=== PATIENT | female | born 1950 | race Caucasian/White ===

== ENCOUNTER → 2022-02-08 16:54 | Outpatient (CLI) | payer OTHER, SELFPAY ==
[2022-02-08 18:20] LABS: TSH w/ Reflex to FT4 0.12 uIU/mL (0.47-4.68)
[2022-02-08 18:54] LABS: Free T4, Direct Thyroxine 1.61 ng/dL (0.78-2.19)
== END ==
PROVIDERS: PCP Student in an Organized Health Care Education/Training Program; Referring Provider Student in an Organized Health Care Education/Training Program; Visit Provider Student in an Organized Health Care Education/Training Program
DX: E03.9 Hypothyroidism, unspecified (principal)
CPT/HCPCS: 36415; 84439; 84443

== ENCOUNTER → 2022-03-10 08:36 | Outpatient (CLI) | payer OTHER, SELFPAY ==
--- NOTE | 2022-03-10 | DI.CT.S_ITS ---
PROCEDURE: CT ORBIT BI W CON INDICATIONS: Constant exophthalmos, right eye TECHNIQUE: After the administration of intravenous contrast, 2.5 mm axial images acquired through the orbits, with coronal and sagittal reformats. For radiation dose reduction, the following was used: automated exposure control, adjustment of mA and/or kV according to patient size. COMPARISON: None. FINDINGS: Image quality: Excellent. Orbits: Globes are symmetrical. Right exophthalmos is noted compatible with reported history. The optic nerves are normal in size and enhancement. No retrobulbar masses or fat abnormalities. The extra-ocular muscles are normal and symmetrical in appearance. Lacrimal glands are normal. Optic chiasm is normal. Periorbital soft tissues are normal. Intracranial: The pituitary gland is normal, without sellar or suprasellar masses. Visualized cerebral hemispheres, brainstem, and spinal cord appear normal. Bones and sinuses: Visualized calvarium and facial bones appear intact. There is complete opacification the left maxillary sinus. Left maxillary sinus is decreased in size relative to the right. The mastoids are clear. IMPRESSION: 1. Right exophthalmos. No right retro bulbar masses, fluid collections or fat abnormalities. 2. Severe chronic left maxillary sinusitis. Decreased left maxillary sinus size compared to the right which could be related to silent sinus syndrome. Please correlate with clinical findings. Dictated by: Yola Abraham MD, PhD on 03/10/2022 at 13:35 Approved by: Yola Abraham MD, PhD on 03/10/2022 at 14:01
[2022-03-10 09:28] LABS: BUN Creatinine Ratio 15.1 (6-22); Blood Urea Nitrogen 14 mg/dL (7-17); Calcium 9.1 mg/dL (8.4-10.2); Carbon Dioxide 26 mmol/L (22-32); Chloride 106 mmol/L (98-107); Estimated Glomerular Filt Rate > 60 mL/min (>60); Glucose 135 mg/dL (80-110); HEMOLYSIS < 15 (0-50); Potassium 3.7 mmol/L (3.4-5.1); Sodium 142 mmol/L (137-145)
[2022-03-10 11:05] LABS: Hemoglobin A1C% w Est Avg Glu 6.1 % (4.0-6.0)
== END ==
PROVIDERS: Internal Medicine; Referring Provider Ophthalmology; Visit Provider Ophthalmology
DX: H05.241 Constant exophthalmos, right eye (principal); E11.9 Type 2 diabetes mellitus without complications; J32.0 Chronic maxillary sinusitis
CPT/HCPCS: 36415; 70481; 80048; 83036; Q9967

== ENCOUNTER 2024-03-03 12:22 | Emergency (ER) | payer OTHER, SELFPAY ==
[2024-03-03] VITALS (19 sets, daily range): BP systolic 179–230; BP diastolic 84–152; PULSE 80–108; RESP 12–16; TEMP 36.7; O2SAT 98–100; BMI 33.9
--- NOTE | 2024-03-03 12:34 | DI.RAD.S_ITS ---
PROCEDURE: XR ANKLE LT MIN 3V INDICATIONS: fall/ pain TECHNIQUE: 3 views of the ankle were acquired. COMPARISON: None. FINDINGS: Bones: There is a mildly displaced distal fibular fracture. Avulsion fractures present of the medial malleolus. Posterior malleolar fracture. There is anterior dislocation of the tibia in relation to the talus. In addition, overall there is medial dislocation of the distal tibia in relation to the talus. Soft tissues: No tibiotalar joint effusion. Achilles tendon appears normal. IMPRESSION: Anterior medial dislocation of the tibia in relation to the tibiotalar joint space. Comminuted distal fibular fracture with angulation. Posterior malleolar fracture is present. Avulsion fracture of the medial malleolus. Dictated by: Jossie Castro M.D. on 03/03/2024 at 13:41 Approved by: Jossie Castro M.D. on 03/03/2024 at 13:42
--- NOTE | 2024-03-03 13:45 | DI.RAD.S_ITS ---
PROCEDURE: XR TIBIA FIBULA LT 2V INDICATIONS: ankle fx TECHNIQUE: 2 views of the tibia and fibula were acquired. COMPARISON: of 03/03/2024[facility], CT, CT LE LT W CON, , 15:52[facility], CR, XR ANKLE LT MIN 3V, 03/03/2024, 12:44. FINDINGS: Bones: Comminuted angulated distal fibular fracture as well as posterior malleolar fracture. There is dislocation of the tibiotalar joint space. Please see CT/ankle x-ray report of 03/03/2024 for further details. Soft tissues: No suspicious soft tissue calcifications or masses. IMPRESSION: Comminuted distal fibular fracture. Mildly displaced posterior malleolar fracture. Dislocation at the tibiotalar joint space. Dictated by: Jossie Castro M.D. on 03/03/2024 at 16:02 Approved by: Jossie Castro M.D. on 03/03/2024 at 16:03
--- NOTE | 2024-03-03 13:52 | ED.LOWEXIN ---
HPI - Extremity Injury (Lower) General Chief Complaint: Extremity Injury, Lower Stated Complaint: Trip and fall L ankle pain. 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 She did straighten it back up herself and eventually called 911 for assistance in getting to the emergency department. States pain is adequately controlled and denying additional pain medication at this time. No other injuries appreciated Related Data Previous Rx's Medication Instructions Recorded hydrocodone 5 mg-acetaminophen 325 0.5 - 1 tab PO Q6H PRN pain #10 03/03/24 mg tablet tabs Allergies Allergy/AdvReac Type Severity Reaction Status Date / Time prochlorperazine Allergy Verified 03/03/24 12:31 [From Compazine] Review of Systems Review of Systems Narrative: Pertinent positive and negative findings as per HPI Patient History Medical History (Updated 03/03/24 @ 16:50 by Judy Crane MD) Hypertension Social History Smoking Status: Never smoker Smoking Status: Never smoker alcohol intake frequency: other Substance Use Type: does not use Exam Initial Vital Signs Initial Vital Signs: Vital Signs Pulse Rate 89 03/03/24 12:27 Blood Pressure 198/91 H 03/03/24 12:27 Pulse Oximetry 99 03/03/24 12:27 General: Healthy appearing, in mild distress. Able to give a complete and coherent history. Well-nourished well-developed HEENT: Moist mucous membranes, normal sclera with reactive pupils, Respiratory: Lungs with Full and symmetrical air movement Cardiac: Regular rate and rhythm no murmurs no bruits Skin: Warm and dry, no rashes Neurologic: Grossly neurologically intact with no obvious asymmetries or abnormalities Extremities: Tenderness and mild swelling to the left ankle. She is neurovascularly intact. She does not have significant tenderness to the knee Psych: Cooperative, appropriate insight and affect Procedures Orthopedic Splinting/Casting Left ankle fracture, dislocation: Time of procedure: 15:39 Side: left Lower Extremity Injury Location: ankle Lower Extremity Immobilizer: posterior splint and stirrup splint Other Orthopedic Equipment: walker Post splinting neuro exam: intact Post splinting vascular exam: intact Placed by: Provider Additional Comments: Patient declined procedural sedation for the reduction and splinting of her trimalleolar fracture. She was given Toradol and dissociated dose of ketamine and tolerated the procedure quite well. Splint was placed, she will go to CT and will need orthopedic follow up as an outpatient Course Orders Ordered: Discontinued Medications Ketamine HCl (Ketamine 50 Mg/5 Ml *Syringe*) 9.5254 mg 0.1 mg/kg (9.5254 mg) IV NOW ONE Stop: 03/03/24 14:26 Last Admin: 03/03/24 15:26 Dose: 9.5254 mg Documented By: RAOUL Ketorolac Tromethamine (Ketorolac 30 Mg/Ml Vial) 15 mg IV NOW ONE Stop: 03/03/24 13:46 Last Admin: 03/03/24 14:13 Dose: 15 mg Documented By: RAOUL Lisinopril (Lisinopril 10 Mg Tablet) 10 mg PO NOW ONE Stop: 03/03/24 13:51 Last Admin: 03/03/24 14:13 Dose: 10 mg Documented By: RAOUL Vital Signs Vital signs: Vital Signs - 8 hr 03/03/24 12:27 03/03/24 12:27 03/03/24 12:30 Temperature Pulse Rate 89 86 Respiratory Rate Blood Pressure 198/91 H Pulse Oximetry 99 99 Oxygen Delivery Method 03/03/24 12:30 03/03/24 12:31 03/03/24 13:00 Temperature 98.0 F Pulse Rate 89 86 Respiratory Rate 16 Blood Pressure 200/86 H 198/91 H Pulse Oximetry 99 98 Oxygen Delivery Method Room Air 03/03/24 13:01 03/03/24 13:01 03/03/24 13:30 Temperature Pulse Rate 85 86 Respiratory Rate Blood Pressure 187/84 H Pulse Oximetry 99 99 Oxygen Delivery Method 03/03/24 13:31 03/03/24 13:31 03/03/24 13:45 Temperature Pulse Rate 80 Respiratory Rate Blood Pressure 197/147 H 179/131 H Pulse Oximetry 100 Oxygen Delivery Method 03/03/24 13:45 03/03/24 14:00 03/03/24 14:01 Temperature Pulse Rate 84 82 85 Respiratory Rate Blood Pressure Pulse Oximetry 100 99 98 Oxygen Delivery Method 03/03/24 14:01 03/03/24 14:13 03/03/24 14:30 Temperature Pulse Rate 89 Respiratory Rate Blood Pressure 186/84 H 186/84 H Pulse Oximetry 99 Oxygen Delivery Method 03/03/24 15:00 03/03/24 15:30 Temperature Pulse Rate 83 108 H Respiratory Rate 12 Blood Pressure Pulse Oximetry 100 99 Oxygen Delivery Method Room Air MDM - Extremity Injury (Lower) Imaging Data Left ankle x-ray: Radiologist's Impression: There is a mildly displaced distal fibular fracture. Avulsion fractures present of the medial malleolus. Posterior malleolar fracture. There is anterior dislocation of the tibia in relation to the talus. In addition, overall there is medial dislocation of the distal tibia in relation to the talus. MDM Narrative Medical decision making narrative: CC: Fall with acute left ankle injury Complicating co-morbidities: Hypertension Data collected from: patient Differential considered: Sprain, fracture, fracture dislocation, knee injury, hip injury Exam documented above, pertinent findings include: Mild swelling to the ankle on the left side. It is in a brace. She is neurovascularly intact. Some minor tenderness to the proximal fibula no other injury to the knee. No pelvic or hip abnormalities. Imaging studies independently reviewed: There is a mildly displaced distal fibular fracture. Avulsion fractures present of the medial malleolus. Posterior malleolar fracture. There is anterior dislocation of the tibia in relation to the talus. In addition, overall there is medial dislocation of the distal tibia in relation to the talus. Consultations: Dr. Chong, orthopedics. Recommendation was reduction posterior splint with sugar-tong, CT scan after reduced and outpatient follow up with her for surgical planning and definitive treatment of the fracture. Treatments: Patient has declined medications however her blood pressure continues to increase. We negotiated 10 additional mg of lisinopril and Toradol at this time Re-evaluations: Patient is tolerating the pain well Discussion: 73-year-old woman with a left trimalleolar fracture dislocation. She is exceptionally intolerant of all pain medications. She did fairly well with simply Toradol and dissociated doses of ketamine for her reduction and splinting. CT scan was obtained for surgical planning purposes. She is placed in a posterior splint with sugar-tong. We will be given a walker. Her partner is working on getting her a wheelchair. She notes she is under significant stressors recently with both financial issues and she and her are currently working on a divorce. Stressed the importance of follow up for definitive treatment, she does understand this is an unstable fracture and she can not put any weight on her foot. She declined any additional pain medication for home use. She is safe for discharge Discharge Plan Departure Patient Disposition: Home Clinical Impression: Closed fracture dislocation of ankle Qualifiers: Encounter type: initial encounter Laterality: left Qualified Code(s): S82.892A - Other fracture of left lower leg, initial encounter for closed fracture Closed fibular fracture Qualifiers: Encounter type: initial encounter Fibula location: shaft Fracture morphology: comminuted Fracture alignment: displaced Laterality: left Qualified Code(s): S82.452A - Displaced comminuted fracture of shaft of left fibula, initial encounter for closed fracture Instructions: DI for Ankle Fracture Activity Restrictions/Additional Instructions: Thank you for coming in today I am sorry such as small slipped on the grass caused such a notable fracture. You broke your fibula and have a trimalleolar fracture with dislocation. I was able to mostly reduce the wound and you were placed in a posterior splint with a sugar-tong supplement. This is an unstable fracture, you can not walk on it. I spoke with Dr. Richa Chong, our orthopedic surgeon. Please call [facility] at [phone] and let them know that you are in the emergency department, you have a trimalleolar ankle fracture and need to schedule an appointment with Dr. Chong for consultation and definitive treatment of your fracture. Please use your usual pain medications if needed. Prescription for hydrocodone was electronically transmitted to [facility] in [place] Keeping the foot elevated can be helpful. An ice pack on the outside to try and reduce some of the swelling can also be helpful. Prescriptions: New hydrocodone-acetaminophen 5-325 mg tablet 0.5 - 1 tab PO Q6H PRN (Reason: pain) Qty: 10 0RF Referrals: Miscellaneous,Doctor, MD [Primary Care Provider] - Stand Alone Forms: Patient Portal/API
[2024-03-03] MEDS: KETOROLAC 30 MG/ML VIAL 15 MG IV (14:13)
[2024-03-03] MEDS: lisinopriL 10 MG TABLET PO (14:13)
[2024-03-03] MEDS: KETAMINE 50 MG/5 ML *SYRINGE 9.5254 MG IV (15:26)
--- NOTE | 2024-03-03 15:37 | DI.CT.S_ITS ---
PROCEDURE: CT LE LT W CON INDICATIONS: Left ankle fx, post reduction, pre-op TECHNIQUE: After the administration of intravenous contrast, 3 mm axial sections acquired of the left ankle , with coronal and sagittal reformats. COMPARISON: [facility], CR, XR TIBIA FIBULA LT 2V, 03/03/2024, 14:01. [facility], CR, XR ANKLE LT MIN 3V, 03/03/2024, 12:44. FINDINGS: Image quality: Excellent. Bones: There is a comminuted mildly displaced posterior malleolar fracture extending to the tibiotalar joint space. Comminuted distal fibular fracture is present. There is widening of the syndesmosis. Avulsion fracture is present at the distal aspect of the medial malleolus. There has been interval reduction compared to prior exam with improved near anatomic alignment at the tibiotalar joint space. Soft tissues: Ankle edema is present. IMPRESSION: Comminuted distal fibular fracture with widening of the syndesmosis. Mildly displaced posterior malleolar fracture extending into the joint space. Medial malleolar avulsion fracture. Near anatomic appearance of previous dislocation at the tibiotalar joint space. Dictated by: Jossie Castro M.D. on 03/03/2024 at 16:30 Approved by: Jossie Castro M.D. on 03/03/2024 at 16:33
--- NOTE | 2024-03-03 15:39 | PC.NURSE ---
Addendum entered by Aditi Rangel R.N. 03/03/24 15:44: gave a non sedative dose of ketamine for left lower extremity reduction, RT at bedside. pt tolerated the procedure and medication well and maintained her airway Original Note: gave a non sedative dose of ketamine for left lower extremity redy
== END 2024-03-03 17:54 | disposition home or self-care (01) ==
PROVIDERS: Emergency Provider Emergency Medicine
DX: S82.452A Displaced comminuted fracture of shaft of left fibula, initial encounter for closed fracture (principal); S82.892A Other fracture of left lower leg, initial encounter for closed fracture; W01.0XXA Fall on same level from slipping, tripping and stumbling without subsequent striking against object, initial encounter
CPT/HCPCS: 73590; 73610; 73701; 96374; 99284; J1885

== ENCOUNTER 2025-08-01 12:43 | Emergency (ER) | payer MEDICARE, SELFPAY ==
[2025-08-01] VITALS (21 sets, daily range): BP systolic 161–254; BP diastolic 75–120; PULSE 77–91; RESP 12–22; TEMP 36.2; O2SAT 95–98; BMI 35.5
--- NOTE | 2025-08-01 12:55 | EKG_ITS ---
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
--- NOTE | 2025-08-01 12:55 | ED.ABDPAIN ---
HPI - Abdominal Pain General Chief Complaint: Abdominal Pain Stated Complaint: Substurnal pain into back/Cramping/Hyperemesis Time Seen by Provider: 08/01/25 12:55 Source: patient Mode of arrival: Ambulatory History of Present Illness HPI narrative: 74-year-old female presents with epigastric pain with nausea but no vomiting, diarrhea, constipation, rectal bleeding, or urinary complaints after eating can beans from [employer], [place] earlier this morning. Patient is going through a divorce right now is under a lot of stress at this time. Patient denies any chest pain, back pain, cough, sore throat, fever, chills, body aches. Other than what is stated 14 pt ROS is negative. Related Data Previous Rx's ?Medication ?Instructions ?Recorded hydrocodone 5 mg-acetaminophen 325 0.5 - 1 tab PO Q6H PRN pain #10 03/03/24 mg tablet tabs Allergies Allergy/AdvReac Type Severity Reaction Status Date / Time Quinolones Allergy SVT Verified 08/01/25 12:53 prochlorperazine (From AdvReac feel ugh Verified 08/01/25 12:53 Compazine) Sulfa (Sulfonamide AdvReac Rash Verified 08/01/25 12:53 Antibiotics) Review of Systems Review of Systems ROS Unobtainable: All systems reviewed & are unremarkable except as noted in HPI and below Patient History Medical History (Updated 08/01/25 @ 18:35 by Avery Pitt DO) Hypertension Social History Smoking Status: Never smoker Smoking Status: Never smoker alcohol intake frequency: other Exam Narrative Exam Narrative: GENERAL: [74] year old patient appears stated age. Well-developed patient, in mild distress. HEAD: Atraumatic. Normocephalic. EYES: Pupils equal round and reactive. Extraocular motions intact. No scleral icterus. No injection or drainage. ENT: Nose without bleeding, purulent drainage. Throat without erythema, tonsillar hypertrophy or exudate. Airway patent. NECK: Trachea midline. Non tender CARDIOVASCULAR: Regular rate and rhythm without murmurs, gallops, or rubs. RESPIRATORY: Clear to auscultation. Breath sounds equal bilaterally. No wheezes, rales, or rhonchi. GASTROINTESTINAL: Abdomen soft, epigastric TTP nondistended. EXTREMITIES: No edema or joint tenderness. BACK: Nontender without deformity or crepitance. No flank tenderness. NEURO: AOx3. SKIN: No rash or erythema of visible areas Initial Vital Signs Initial Vital Signs: Vital Signs Temperature 97.2 F L 08/01/25 12:50 Pulse Rate 91 H 08/01/25 12:50 Respiratory Rate 18 08/01/25 12:50 Blood Pressure 243/113 H 08/01/25 12:50 Oxygen Delivery Method Room Air 08/01/25 12:50 Course Orders Ordered: ED Orders 08/01/25 12:55 CT abdomen pelvis w con Stat EKG-12 Lead Stat 08/01/25 13:10 Complete Blood Count AUTO DIFF Stat Comprehensive Metabolic Panel Stat Lipase Stat Trop I [Troponin I] Stat 08/01/25 14:48 Urine Culture Stat Urine Microscopic Stat 08/01/25 16:45 Troponin I Stat Lactated Ringer's (Lactated Ringers) 1,000 mls @ 1,000 mls/hr IV BOLUS ONE Stop: 08/01/25 18:57 Last Admin: 08/01/25 18:04 Dose: 1,000 mls/hr Documented By: ESTEFANY Ondansetron HCl (Ondansetron 4 Mg/2 Ml Inj) 4 mg IV NOW PRN PRN Reason: Nausea And Vomiting Last Admin: 08/01/25 14:04 Dose: 4 mg Documented By: LUIS Ondansetron HCl (Ondansetron 4 Mg Odt) 4 mg PO NOW PRN PRN Reason: Nausea And Vomiting Discontinued Medications Hydrocodone Bitart/Acetaminophen (Hydrocodone/Acet 5/325 Tablet) 1 tab PO NOW ONE Stop: 08/01/25 13:59 Last Admin: 08/01/25 14:04 Dose: 0.5 tab Documented By: LUIS Al Hydrox/Mg Hydrox/Simethicone 30 ml/ Lidocaine HCl 15 ml 0 ml PO NOW ONE Stop: 08/01/25 15:25 Last Admin: 08/01/25 15:43 Dose: 45 ml Documented By: ESTEFANY Hydralazine HCl (Hydralazine 20 Mg/Ml Vial) 5 mg IV NOW ONE Stop: 08/01/25 15:23 Last Admin: 08/01/25 15:42 Dose: 5 mg Documented By: ESTEFANY Hydralazine HCl (Hydralazine 20 Mg/Ml Vial) 10 mg IV NOW ONE Stop: 08/01/25 17:14 Last Admin: 08/01/25 17:49 Dose: Not Given Documented By: ESTEFANY Ketorolac Tromethamine (Ketorolac 30 Mg/Ml Vial) 15 mg IV NOW ONE Stop: 08/01/25 12:56 Last Admin: 08/01/25 13:31 Dose: 15 mg Documented By: ODELL Ketorolac Tromethamine (Ketorolac 30 Mg/Ml Vial) 15 mg IV NOW ONE Stop: 08/01/25 18:16 Last Admin: 08/01/25 18:19 Dose: 15 mg Lisinopril (Lisinopril 10 Mg Tablet) 10 mg PO NOW ONE Stop: 08/01/25 14:33 Last Admin: 08/01/25 14:37 Dose: 10 mg Documented By: LUIS Vital Signs Vital signs: Vital Signs - 8 hr 08/01/25 12:50 08/01/25 14:33 08/01/25 14:37 Temperature 97.2 F L Pulse Rate 91 H 80 80 Respiratory Rate 18 18 Blood Pressure 243/113 H 243/112 H 243/112 H Pulse Oximetry Oxygen Delivery Method Room Air 08/01/25 14:45 08/01/25 14:58 08/01/25 15:00 Temperature Pulse Rate 85 Respiratory Rate Blood Pressure 251/113 H 227/109 H Pulse Oximetry 96 Oxygen Delivery Method 08/01/25 15:00 08/01/25 15:17 08/01/25 15:17 Temperature Pulse Rate 84 85 Respiratory Rate 18 19 Blood Pressure 244/112 H Pulse Oximetry 97 95 Oxygen Delivery Method 08/01/25 15:30 08/01/25 15:39 08/01/25 15:39 Temperature Pulse Rate 89 85 Respiratory Rate 15 16 Blood Pressure 254/120 H Pulse Oximetry 97 97 Oxygen Delivery Method 08/01/25 15:42 08/01/25 15:52 08/01/25 15:52 Temperature Pulse Rate 88 88 Respiratory Rate 22 Blood Pressure 254/120 H 228/103 H Pulse Oximetry 98 Oxygen Delivery Method 08/01/25 16:00 08/01/25 16:00 08/01/25 16:20 Temperature Pulse Rate 80 79 Respiratory Rate Blood Pressure 230/108 H 230/108 H Pulse Oximetry 98 Oxygen Delivery Method 08/01/25 16:30 08/01/25 16:31 08/01/25 16:31 Temperature Pulse Rate 79 81 Respiratory Rate Blood Pressure 224/102 H Pulse Oximetry 98 97 Oxygen Delivery Method 08/01/25 17:00 08/01/25 17:01 08/01/25 17:01 Temperature Pulse Rate 83 83 Respiratory Rate 22 Blood Pressure 203/95 H Pulse Oximetry 97 97 Oxygen Delivery Method 08/01/25 17:30 08/01/25 17:31 08/01/25 17:31 Temperature Pulse Rate 82 84 Respiratory Rate Blood Pressure 161/75 H Pulse Oximetry 96 96 Oxygen Delivery Method 08/01/25 18:27 Temperature Pulse Rate 77 Respiratory Rate 12 Blood Pressure 193/89 H Pulse Oximetry 96 Oxygen Delivery Method Room Air MDM - Abdominal Pain Lab Data 08/01/25 13:10 08/01/25 13:10 Labs: Lab Results 08/01/25 08/01/25 08/01/25 Range/Units 13:10 14:48 16:45 WBC 13.1 H (4.5-11.0) X10^3/uL RBC 4.94 (4.0-5.2) X10^6/uL Hgb 14.6 (12.0-16.0) g/dL Hct 43.0 (36-46) % MCV 87.0 (80-100) fL MCH 29.6 (26-34) PG MCHC 34.0 (30-36) % RDW 15.3 H (11.6-14.8) % Plt Count 247 (150-400) X10^3/uL Neut % (Auto) 90.3 H (50-75) % Lymph % (Auto) 6.5 L (25-40) % [place] % (Auto) 2.8 L (3-14) % Eos % (Auto) 0.1 L (2-4) % Baso % (Auto) 0.3 (0-2) % Neut # (Auto) 60833 H (0752-0180) /uL Lymph # (Auto) 800 L (0466-2921) /uL [place] # (Auto) 400 (0-900) /uL Eos # (Auto) 0 (0-450) /uL Baso # (Auto) 0 (0-100) /uL Sodium 133 L (137-145) mmol/L Potassium 4.4 (3.4-5.1) mmol/L Chloride 99 (98-107) mmol/L Carbon Dioxide 24 (22-32) mmol/L BUN 15 (7-17) mg/dL Creatinine 0.82 (0.52-1.04) mg/dL Estimated GFR > 60 (>60) mL/min BUN/Creatinine Ratio 18.3 (6-22) Glucose 225 H (70-99) mg/dL Calcium 9.9 (8.4-10.2) mg/dL Total Bilirubin 0.8 (0.2-1.3) mg/dL AST 29 (14-36) IU/L ALT 22 (<35) IU/L Alkaline Phosphatase 69 (38-126) U/L Troponin I < 0.012 < 0.012 (0.01-0.034) ng/mL Total Protein 8.8 H (6.3-8.2) g/dL Albumin 4.9 (3.5-5.0) g/dL Globulin 3.9 (1.7-4.1) g/dL Albumin/Globulin Ratio 1.3 (1.0-2.8) Lipase 40 (23-300) U/L Urine RBC 0-1/hpf (0-5/HPF) Urine WBC 0-1/hpf (0-5/HPF) Ur Squamous Epith Cells 0-1 /hpf (0-5/HPF) Urine Bacteria Occasional (0-1) (None) Vol Urine Centrifuged 10ml (spun) Point of care testing: Urine Dip Bedside Urine Glucose 100 mg/dl Bedside Urine Bilirubin - Negative Bedside Urine Ketone - Negative Urine Specific [place] 1.010 Bedside Urine Occult Blood + Bedside Urine pH 8.0 Bedside Urine Protein ++ 100 Bedside Urine Urobilinogen - Negative Bedside Urine Nitrite - Negative Bedside Urine Leukocytes - Negative Esterase Imaging Data CT scan - abdomen/pelvis: Radiologist's Impression: [address] [address] [address] Scan Report Signed Patient: Mary Reed MR#: [id number] : 1950 Acct:[id number] Age/Sex: 74 / F Date of Service: 08/01/25 Loc: ED Accession Number: [id number] Procedure: CT abdomen pelvis w con Ordering Provider: Avery Pitt D.O. PROCEDURE: CT ABDOMEN PELVIS W CON INDICATIONS: abd pain TECHNIQUE: After the administration of intravenous contrast, axial sections acquired from the lung bases to the pubic symphysis. Coronal and sagittal reformats were performed. For radiation dose reduction, the following was used: automated exposure control, adjustment of mA and/or kV according to patient size. COMPARISON: None. FINDINGS: Image quality: Diagnostic. Lower Chest: No significant findings. ABDOMEN: Liver: No solid mass. Hepatic steatosis. Gallbladder: No radiopaque gallstones or wall thickening. Biliary ducts: No biliary dilation. Pancreas: No ductal dilation. Moderate fatty infiltration of the parenchyma. Spleen: Size is within normal limits. Adrenal Glands: No adrenal nodules. Kidneys and Ureters: No hydronephrosis. No solid mass. No complex renal cystic lesion which requires follow up. Stomach and Bowel: Normal colonic caliber, without significant wall thickening. Normal appendix. Descending and sigmoid colon diverticulosis without diverticulitis. Peritoneum: No abnormal intraperitoneal fluid. No free air. Ventral Wall: Tiny fat containing periumbilical hernia.. Abdominal Nodes: No retroperitoneal or mesenteric adenopathy by size criteria. Vessels: Aorta and inferior vena cava are normal in size. PELVIS: Pelvic Organs: Unremarkable. Bladder: No bladder wall thickening, accounting for underdistention. Pelvic Nodes: No enlarged lymph nodes. Miscellaneous: No inguinal hernias are seen. Bones: No aggressive osseous abnormality. Degenerative disc disease in the inferior lumbar spine. IMPRESSION: 1. No acute abnormality within the abdomen or pelvis. 2. Diverticulosis without diverticulitis. ECG Data Interpretation: NSR HR 79 CO 132 QRS [address]-t wave change No previous EKG to compare MDM Narrative Medical decision making narrative: All lab work, vital signs, nurse triage note, medication list, previous ER visits, and all imaging studies reviewed. CT abdomen and pelvis showed no acute abnormality within the abdomen or pelvis. Diverticulosis without diverticulitis. WBC 13.9 hemoglobin 14.6 platelets 247 sodium 133 has not 4.4 chloride 99 CO2 24 BUN 15 creatinine 0.82 glucose 225 troponin less than 0.012x2 LFTs normal lipase 40. Differential dx - stress, pancreatitis, diverticulitis, gerd, ulcer, constipation, kidney stone, kidney infection. Pt given fluids, hydralazine 5mg IV, gi cocktail. Discharge Plan Departure Patient Disposition: Home Clinical Impression: Abdominal pain, epigastric, Hypertensive urgency Instructions: DI for Abdominal Pain-Adult Activity Restrictions/Additional Instructions: Return with new or worsening symptoms. Keep hydrated. If BP elevated above 140/90 ok to take extra pill of lisiniopril daily until seen by PCP. Clear liquid diet advance as tolerated. Follow up PCP in 1-2 weeks if no improvement in symptoms. Prescriptions: No Action hydrocodone-acetaminophen 5-325 mg tablet 0.5 - 1 tab PO Q6H PRN (Reason: pain) Qty: 10 0RF Referrals: Quan Rodrigues MD [Primary Care Provider, Family Practice] Stand Alone Forms: Patient Portal/API
[2025-08-01 13:18] LABS: Add Manual Diff / Slide Review NO; Hematocrit 43.0 % (36-46); Hemoglobin 14.6 g/dL (12.0-16.0); Lymphocytes Absolute Auto 800 /uL (1100-4500); Mean Corpuscular HGB Conc 34.0 % (30-36); Mean Corpuscular Hemoglobin 29.6 PG (26-34); Mean Corpuscular Volume 87.0 fL (80-100); Platelet Count 247 X10^3/uL (150-400)
[2025-08-01 13:31] LABS: Alanine Aminotransferase 22 IU/L (<35); Albumin 4.9 g/dL (3.5-5.0); Albumin Globulin Ratio 1.3 (1.0-2.8); Alkaline Phosphatase 69 U/L (38-126); Blood Urea Nitrogen 15 mg/dL (7-17); Calcium 9.9 mg/dL (8.4-10.2); Carbon Dioxide 24 mmol/L (22-32); Chloride 99 mmol/L (98-107); Estimated Glomerular Filt Rate > 60 mL/min (>60); Globulin 3.9 g/dL (1.7-4.1); Glucose 225 mg/dL (70-99); HEMOLYSIS < 15 (0-50); Lipase 40 U/L (23-300); Potassium 4.4 mmol/L (3.4-5.1); Sodium 133 mmol/L (137-145); Total Protein 8.8 g/dL (6.3-8.2)
[2025-08-01] MEDS: KETOROLAC 30 MG/ML VIAL 15 MG IV ×2 (13:31→18:19)
[2025-08-01] MEDS: ONDANSETRON 4 MG/2 ML INJ IV (14:04)
--- NOTE | 2025-08-01 14:36 | PC.NURSE ---
pt states she does not want to try any IV medications to lower BP. States she wants to take her regular dosed 10mg lisinopril because she forgot her dose this AM. Provider aware
--- NOTE | 2025-08-01 14:40 | PC.NURSE ---
Pt ambulated on own to restroom.
[2025-08-01 14:49] LABS: Troponin I < 0.012 ng/mL (0.01-0.034)
[2025-08-01] MEDS: hydrALAZINE 20 MG/ML VIAL 5 MG IV (15:42)
[2025-08-01] MEDS: MAG HYDROX/ALUMINUM/SIMETH SUS 30 ML, LIDOCAINE VISCOUS 2% 15 ML PO (15:43)
[2025-08-01 17:42] LABS: Troponin I < 0.012 ng/mL (0.01-0.034)
[2025-08-01] MEDS: LACTATED RINGERS 1,000 ML 1000 ML IV (18:04)
== END 2025-08-01 18:57 | disposition home or self-care (01) ==
PROVIDERS: Emergency Provider Family Medicine; PCP Family Medicine
DX: R10.13 Epigastric pain (principal); I16.0 Hypertensive urgency; Z86.79 Personal history of other diseases of the circulatory system
CPT/HCPCS: 36415; 74177; 80053; 81003; 81015; 83690; 84484; 85025; 87086; 93005; 96374; 96375; 96376; 99284; J0360; J1885; J2405; J7120; Q9967

== ENCOUNTER 2025-08-03 10:35 | Inpatient (IN) | payer MEDICARE, SELFPAY ==
[2025-08-03] VITALS (22 sets, daily range): BP systolic 148–227; BP diastolic 62–108; PULSE 82–99; RESP 12–21; TEMP 36.8–37.1; O2SAT 96–100; BMI 35.5
--- NOTE | 2025-08-03 10:46 | DI.RAD.S_ITS ---
PROCEDURE: XR CHEST 1V INDICATIONS: Chest Pain TECHNIQUE: One view of the chest was acquired. COMPARISON: None. FINDINGS: Surgical changes and devices: None. Lungs and pleura: Lungs are clear. No pleural effusions or pneumothorax. Mediastinum: Mediastinal contours appear normal. Heart size is normal. Bones and chest wall: No suspicious bony lesions. Overlying soft tissues appear unremarkable. IMPRESSION: No acute cardiopulmonary pathology. Dictated by: Patricio Morfin M.D. on 08/03/2025 at 11:12 Approved by: Patricio Morfin M.D. on 08/03/2025 at 11:12
--- NOTE | 2025-08-03 10:47 | EKG_ITS ---
[place] [address] [address], [place] [address] Test Date: 2025-08-03 Pat Name: Mary Reed Department: Room: Gender: Female Director Of Estate: TIAGO : 1950 Requested By: Order Number: [id number] Reading MD: Roe Moreno Measurements Intervals [place] Rate: 84 P: 29 HI: 138 QRS: 3 QRSD: 80 T: 17 QT: 376 QTc: 444 Interpretive Statements Normal sinus rhythm Electronically Signed On 08-08-2025 12:23:22 PST by Roe Moreno
[2025-08-03 11:07] LABS: Add Manual Diff / Slide Review NO; Hematocrit 43.5 % (36-46); Hemoglobin 14.7 g/dL (12.0-16.0); Lymphocytes Absolute Auto 1500 /uL (1100-4500); Mean Corpuscular HGB Conc 33.8 % (30-36); Mean Corpuscular Hemoglobin 29.5 PG (26-34); Mean Corpuscular Volume 87.3 fL (80-100); Platelet Count 231 X10^3/uL (150-400)
--- NOTE | 2025-08-03 11:09 | ED.GENADULT ---
HPI - General Adult General Chief complaint: Hypertension Stated complaint: High blood pressure, not feeling well 205/118 Time Seen by Provider: 08/03/25 10:48 Source: patient Mode of arrival: Wheelchair History of Present Illness HPI narrative: Patient seen here 2 days ago for same complaint. Had no acute finding on CT abdomen pelvis. Has had bandlike epigastric pain radiating to the back. Has had nonbloody vomiting. Brought here by a friend. Patient sees Dr. Eliezer Yuen primary care. History of heart attack or stroke no aneurysm pulmonary embolism. Blood pressure noted. She states she has been taking blood pressure medication. Denies any abdominal surgical history. Related Data Home Medications ?Medication ?Instructions ?Recorded ?Confirmed clobetasol 0.05 % topical cream 1 applic topical BID PRN rash 08/03/25 08/03/25 levothyroxine 125 mcg tablet 125 mcg PO DAILY 08/03/25 08/03/25 (Synthroid) lisinopril 10 mg tablet 10 mg PO DAILY 08/03/25 08/03/25 Previous Rx's ?Medication ?Instructions ?Recorded hydrocodone 5 mg-acetaminophen 325 0.5 - 1 tab PO Q6H PRN pain #10 03/03/24 mg tablet tabs ondansetron HCl 4 mg tablet 4 mg PO Q8H PRN nausea and 08/01/25 vomiting #30 tabs Allergies Allergy/AdvReac Type Severity Reaction Status Date / Time Quinolones Allergy SVT Verified 08/03/25 10:47 prochlorperazine (From AdvReac feel ugh Verified 08/03/25 10:47 Compazine) Sulfa (Sulfonamide AdvReac Rash Verified 08/03/25 10:47 Antibiotics) Review of Systems Review of Systems Narrative: GENERAL: Negative chills, fatigue, malaise, fever, sweats. HEENT: Negative sinus pain, ear pain, sore throat RESPIRATORY: Negative dyspnea, cough CARDIOVASCULAR: Negative chest pain, palpitations GASTROINTESTINAL: Positive vomiting, nausea, abdominal pain : Negative dysuria, frequency, hematuria MUSCULOSKELETAL: Negative muscle or bony pain SKIN: Negative rash, skin lesions NEUROLOGIC: Negative weakness, numbness ROS Unobtainable: All systems reviewed & are unremarkable except as noted in HPI and below Patient History Medical History (Updated 08/03/25 @ 14:01 by Ryan Bean MD) Hypertension Social History household members: spouse Smoking Status: Never smoker alcohol intake: current Smoking Status: Unknown if ever smoked alcohol intake frequency: other Exam Narrative Exam Narrative: GENERAL: in no distress, not toxic not dyspneic HEAD: Normocephalic. EYES: Pupils equal round ENT: Mucous membranes moist. NECK: Trachea midline. CARDIOVASCULAR: Regular rate and rhythm RESPIRATORY: Clear to auscultation. Breath sounds equal bilaterally. No wheezes, rales, or rhonchi. GASTROINTESTINAL: Abdomen soft, reproducible epigastric tenderness no peritoneal signs no guarding or rebound. Bowel sounds are present. No CVA tenderness. BACK: No flank tenderness. EXTREMITIES: No gross deformities. NEURO: AOx4. Clear speech SKIN: Warm and dry PSYCH: Not anxious, is cooperative Initial Vital Signs Initial Vital Signs: Vital Signs Temperature 98.7 F 08/03/25 10:36 Pulse Rate 87 08/03/25 10:36 Respiratory Rate 14 08/03/25 10:36 Blood Pressure 227/108 H 08/03/25 10:36 Pulse Oximetry 98 08/03/25 10:36 Oxygen Delivery Method Room Air 08/03/25 10:36 Course Orders Ordered: Acetaminophen (Acetaminophen 325 Mg Tablet) 650 mg PO Q6H PRN PRN Reason: Fever/Mild Pain (1-3) Last Admin: 08/03/25 19:47 Dose: 650 mg Documented By: AT Hydralazine HCl (Hydralazine 20 Mg/Ml Vial) 10 mg IV Q6HR PRN PRN Reason: Hypertension Hydromorphone HCl (Hydromorphone 1 Mg/Ml Syringe) 1 mg IV Q3H PRN PRN Reason: Pain, Severe (7-10) Last Admin: 08/03/25 21:54 Dose: 1 mg Documented By: AT Ceftriaxone Sodium 2,000 mg/ (Sodium Chloride) 100 mls @ 200 mls/hr IV DAILY [facility] Last Infusion: 08/03/25 14:55 Dose: Infused Documented By: Admin: 08/03/25 14:09 Dose: 200 mls/hr Documented By: CB Metronidazole (Flagyl) 500 mg in 100 mls @ 100 mls/hr IV Q8H [facility] Last Admin: 08/04/25 06:16 Dose: 100 mls/hr Documented By: Infusion: 08/03/25 23:32 Dose: Infused Documented By: Admin: 08/03/25 21:54 Dose: 100 mls/hr Documented By: Infusion: 08/03/25 16:11 Dose: Infused Documented By: Admin: 08/03/25 14:09 Dose: 100 mls/hr Documented By: KANE Sodium Chloride (Normal Saline 0.9%) 1,000 mls @ 125 mls/hr IV CONT ONUR Last Admin: 08/03/25 23:47 Dose: 125 mls/hr Documented By: Infusion: 08/03/25 22:30 Dose: Infused Documented By: Admin: 08/03/25 14:30 Dose: 125 mls/hr Documented By: KANE Ondansetron HCl (Ondansetron 4 Mg/2 Ml Inj) 4 mg IV Q4HR PRN PRN Reason: Nausea And Vomiting Last Admin: 08/04/25 00:08 Dose: 4 mg Documented By: AT Oxycodone HCl (Oxycodone Ir 5 Mg Tablet) 5 mg PO Q4HR PRN PRN Reason: Pain, Moderate (4-6) Discontinued Medications Bupivacaine HCl/Epinephrine Bitart (Bupivacaine 0.25% W/ Epi (Pf) 30 Ml Vial) 60 ml INJ INTRA-OP ONE Stop: 08/04/25 07:04 Al Hydrox/Mg Hydrox/Simethicone 20 ml/ Lidocaine HCl 15 ml 0 ml PO NOW ONE Stop: 08/03/25 13:11 Last Admin: 08/03/25 13:35 Dose: 35 ml Documented By: QUIANA Hydralazine HCl (Hydralazine 20 Mg/Ml Vial) 10 mg IV NOW ONE Stop: 08/03/25 15:11 Last Admin: 08/03/25 15:17 Dose: 10 mg Documented By: KANE Hydromorphone HCl (Hydromorphone 1 Mg/Ml Syringe) 1 mg IV Q2HR PRN PRN Reason: pain Sodium Chloride (Normal Saline 0.9%) 1,000 mls @ 1,000 mls/hr IV BOLUS ONE Stop: 08/03/25 12:12 Last Infusion: 08/03/25 14:56 Dose: Infused Documented By: Admin: 08/03/25 13:35 Dose: 1,000 mls/hr Documented By: QUIANA Morphine Sulfate (Morphine 4 Mg/Ml Inj) 2 mg IV NOW ONE Stop: 08/03/25 11:33 Last Admin: 08/03/25 11:40 Dose: 2 mg Documented By: KANE Morphine Sulfate (Morphine 2 Mg/Ml Inj) 2 mg IV Q4HR PRN PRN Reason: Pain, Moderate (4-6) Ondansetron HCl (Ondansetron 4 Mg/2 Ml Inj) 4 mg IV NOW ONE Stop: 08/03/25 11:14 Last Admin: 08/03/25 11:40 Dose: 4 mg Documented By: KANE Pantoprazole Sodium (Pantoprazole 40 Mg Vial) 40 mg IV NOW ONE Stop: 08/03/25 11:19 Last Admin: 08/03/25 11:40 Dose: 40 mg Documented By: KANE Vital Signs Vital signs: Vital Signs - 8 hr 08/03/25 10:36 08/03/25 10:41 08/03/25 10:41 Temperature 98.7 F Pulse Rate 87 89 Respiratory Rate 14 Blood Pressure 227/108 H 227/108 H Pulse Oximetry 98 98 Oxygen Delivery Method Room Air 08/03/25 11:00 08/03/25 11:01 08/03/25 11:01 Temperature Pulse Rate 97 H 97 H Respiratory Rate Blood Pressure 219/102 H Pulse Oximetry 98 98 Oxygen Delivery Method 08/03/25 11:30 08/03/25 11:30 08/03/25 12:10 Temperature Pulse Rate 98 H 85 Respiratory Rate Blood Pressure 212/101 H Pulse Oximetry 99 99 Oxygen Delivery Method 08/03/25 12:11 08/03/25 12:11 08/03/25 12:30 Temperature Pulse Rate 85 84 Respiratory Rate Blood Pressure 218/90 H Pulse Oximetry 99 96 Oxygen Delivery Method 08/03/25 12:31 08/03/25 12:31 08/03/25 13:00 Temperature Pulse Rate 84 89 Respiratory Rate Blood Pressure 174/75 H Pulse Oximetry 96 98 Oxygen Delivery Method 08/03/25 13:01 08/03/25 13:01 Temperature Pulse Rate 90 Respiratory Rate 18 Blood Pressure 155/72 H Pulse Oximetry 100 Oxygen Delivery Method Room Air Medical Decision Making Lab Data 08/03/25 11:00 08/03/25 11:00 Labs: Lab Results 08/03/25 Range/Units 11:00 WBC 9.5 (4.5-11.0) X10^3/uL RBC 4.99 (4.0-5.2) X10^6/uL Hgb 14.7 (12.0-16.0) g/dL Hct 43.5 (36-46) % MCV 87.3 (80-100) fL MCH 29.5 (26-34) PG MCHC 33.8 (30-36) % RDW 14.9 H (11.6-14.8) % Plt Count 231 (150-400) X10^3/uL Neut % (Auto) 77.6 H (50-75) % Lymph % (Auto) 15.3 L (25-40) % [place] % (Auto) 6.2 (3-14) % Eos % (Auto) 0.6 L (2-4) % Baso % (Auto) 0.3 (0-2) % Neut # (Auto) 7400 H (6050-5065) /uL Lymph # (Auto) 1500 (5800-3722) /uL [place] # (Auto) 600 (0-900) /uL Eos # (Auto) 100 (0-450) /uL Baso # (Auto) 0 (0-100) /uL PT 11.3 (9.4-12.5) SECONDS INR 1.0 (0.9-1.3) APTT 26 (25.1-36.5) SECONDS Sodium 137 (137-145) mmol/L Potassium 4.1 (3.4-5.1) mmol/L Chloride 103 (98-107) mmol/L Carbon Dioxide 25 (22-32) mmol/L BUN 19 H (7-17) mg/dL Creatinine 0.99 (0.52-1.04) mg/dL Estimated GFR 60 (>60) mL/min BUN/Creatinine Ratio 19.2 (6-22) Glucose 200 H (70-99) mg/dL Lactate 1.2 (0.7-2.1) mmol/L Calcium 9.3 (8.4-10.2) mg/dL Magnesium 2.0 (1.6-2.3) mg/dL Total Bilirubin 4.8 H (0.2-1.3) mg/dL AST 378 H (14-36) IU/L ALT 192 H (<35) IU/L Alkaline Phosphatase 103 (38-126) U/L Total Creatine Kinase 113 (30-135) U/L Troponin I < 0.012 (0.01-0.034) ng/mL NT-Pro-B Natriuret Pep 131 H (<125) pg/mL Total Protein 8.4 H (6.3-8.2) g/dL Albumin 4.5 (3.5-5.0) g/dL Globulin 3.9 (1.7-4.1) g/dL Albumin/Globulin Ratio 1.2 (1.0-2.8) Lipase 62 D (23-300) U/L Imaging Data Chest x-ray: Radiologist's Impression: [address] [address] XRay Report Signed Patient: Mary Reed MR#: [id number] : 1950 Acct:[id number] Age/Sex: 74 / F Date of Service: 08/03/25 Loc: ED Accession Number: [id number] Procedure: XR chest 1V Ordering Provider: Ryan Bean MD PROCEDURE: XR CHEST 1V INDICATIONS: Chest Pain TECHNIQUE: One view of the chest was acquired. COMPARISON: None. FINDINGS: Surgical changes and devices: None. Lungs and pleura: Lungs are clear. No pleural effusions or pneumothorax. Mediastinum: Mediastinal contours appear normal. Heart size is normal. Bones and chest wall: No suspicious bony lesions. Overlying soft tissues appear unremarkable. IMPRESSION: No acute cardiopulmonary pathology. Dictated by: Patricio Morfin M.D. on 08/03/2025 at 11:12 Approved by: Patricio Morfin M.D. on 08/03/2025 at 11:12 US - abdomen: Radiologist's Impression: [address] [address] Ultrasound Report Signed Patient: Mary Reed MR#: [id number] : 1950 Acct:[id number] Age/Sex: 74 / F Date of Service: 08/03/25 Loc: ED Accession Number: [id number] Procedure: US abdomen limited Ordering Provider: Ryan Bean MD PROCEDURE: US ABDOMEN LIMITED INDICATIONS: Upper abdominal pain, attention gallbladder TECHNIQUE: Real-time scanning was performed of the abdominal and retroperitoneal organs, with image documentation. COMPARISON: [facility], CT, CT ANGIO CHEST ABDOMEN PELVIS, 08/03/2025, 11:17. FINDINGS: Liver: Liver is normal in size and homogeneous in echotexture. Gallbladder: Numerous gallstones are present in the gallbladder. Distended gallbladder. It is uncertain by ultrasound whether there is wall thickening. However wall thickening and inflammatory change adjacent to the gallbladder seen CT. No sonographic Romo sign. Biliary ducts: Intrahepatic bile ducts are non-dilated. Extrahepatic bile duct caliber measures 6.4 mm. Normal is 6-7 mm or less in diameter, or 10 mm or less post-cholecystectomy. Pancreas: Visualized portions of the pancreas are sonographically normal. Miscellaneous: No free abdominal fluid. IMPRESSION: Findings may potentially correlate with a diagnosis acute cholecystitis despite the lack a Romo sign. Recommend correlation with clinical examination. Consider HIDA study. Consider MRCP with contrast. Dictated by: Ronen Hastings M.D. on 08/03/2025 at 13:27 Approved by: Ronen Hastings M.D. on 08/03/2025 at 13:31 CT angio chest abdomen pelvis: Radiologist's Impression: [place] [address] CT Scan Report Signed Patient: Mayr Reed MR#: [id number] : 1950 Acct:[id number] Age/Sex: 74 / F Date of Service: 08/03/25 Loc: ED Accession Number: [id number] Procedure: CT angio chest abdomen pelvis Ordering Provider: Ryan Bean MD PROCEDURE: CT ANGIO CHEST ABDOMEN PELVIS INDICATIONS: Chest pain abdominal pain TECHNIQUE: Precontrast 5 mm thick sections acquired from the lung apices to the iliac crests. After the administration of intravenous contrast, 2.5 mm thick sections again acquired from the lung apices to the iliac crests. Maximum intensity projection (MIP) oblique sagittal and coronal reformats were then acquired. For radiation dose reduction, the following was used: automated exposure control. COMPARISON: [facility], CT, CT ABDOMEN PELVIS W CON, 08/01/2025, 13:51. FINDINGS: Image quality: Diagnostic. AORTA: No aortic aneurysm. No acute aortic syndrome. CHEST: Lower Neck: No enlarged lymph nodes. Thyroid: No thyroid nodules which require sonographic evaluation. Axillae: No enlarged lymph nodes. Chest Wall: Unremarkable. Lungs and Pleura: No pneumothorax or pleural effusions. No consolidation or suspicious nodules. Heart: Heart size is normal. No pericardial effusion. Thoracic Vessels: Pulmonary arteries is prominent in size which can be seen associated with pulmonary vascular hypertension. Mediastinum and Charla: Borderline enlarged pretracheal lymph no measures 1 cm in short axis diameter series 5, image 64. Esophagus: No wall thickening. Small hiatal hernia. ABDOMEN: Liver: No solid mass. Gallbladder: Distended gallbladder with suggestion of gallbladder wall thickening. No calcified gallstones are seen. Biliary ducts: No biliary dilation. Pancreas: No ductal dilation. Spleen: Size is within normal limits. Adrenal Glands: No adrenal nodules. Kidneys and Ureters: No hydronephrosis. No solid mass. No complex renal cystic lesion which requires follow up. Stomach and Bowel: Normal colonic caliber, without significant wall thickening. Normal appendix. No abscess collection. Sigmoid diverticulosis without CT evidence of acute diverticulitis. Peritoneum: No abnormal intraperitoneal fluid. No free air. Ventral Wall: No hernia. Abdominal Nodes: No retroperitoneal or mesenteric adenopathy by size criteria. Vessels: Inferior vena cava is normal in size. PELVIS: Pelvic Organs: Unremarkable. Bladder: Unremarkable. Pelvic Nodes: No enlarged lymph nodes. Miscellaneous: No inguinal hernias are seen. Bones: No aggressive appearing bony lesions. Degenerative disc disease throughout thoracic and lumbar spine is seen. No acute vertebral body compression fractures. IMPRESSION: 1. No aortic aneurysm or dissection. 2. Prominent size of main pulmonary artery which can be seen associated with pulmonary vascular hypertension suggest clinical correlation. 3. No focal infiltrate, pleural effusion or pneumothorax. 4. Mildly distended gallbladder with questionable gallbladder wall thickening and enhancement. Early acalculous cholecystitis cannot be excluded. Clinical correlation is recommended. No gross biliary ductal dilatation. 5. Normal appendix. No bowel obstruction or abnormal bowel wall thickening. Colonic diverticulosis without CT evidence of of acute diverticulitis. No free fluid or free air. 6. Other chronic findings as above. Dictated by: Patricio Morfin M.D. on 08/03/2025 at 12:13 Approved by: Patricio Morfin M.D. on 08/03/2025 at 12:23 MDM Narrative Medical decision making narrative: Patient seen here 2 days ago for same complaint. Had no acute finding on CT abdomen pelvis. Has had bandlike epigastric pain radiating to the back. Has had nonbloody vomiting. Brought here by a friend. Patient sees Dr. Eliezer Yuen primary care. History of heart attack or stroke no aneurysm pulmonary embolism. Blood pressure noted. She states she has been taking blood pressure medication. Denies any abdominal surgical history. MDM After history and exam, CBC CMP troponin lactic acid lipase EKG CT angio chest abdomen pelvis normal saline Dilaudid Zofran Differential considered: Includes but not limited to STEMI non-STEMI pancreatitis aortic dissection pulmonary embolism cholelithiasis cholecystitis gastritis acid reflux Medical records reviewed: ER visit here [address] abdomen pelvis ER notes laboratory studies Lab Test results independently reviewed as above. Pertinent findings: WBC 9.5 hemoglobin 14.7 sodium 137 potassium 4.1 glucose 200 AST 378 ALT 192 total bilirubin 4.8 troponin less than 0.012 Independently reviewed EKG normal sinus rhythm rate 84 normal EKG Imaging studies independently reviewed: Chest x-ray no acute finding CTA chest abdomen pelvis Consultations: 1:[address] Roberson, general surgeon, who will admit patient. Likely surgery tomorrow. He would like Rocephin and Flagyl started. Re-evaluations: 1:50 p.m.. Spoke with patient and friend. She agrees for admission and will likely need gallbladder taken out tomorrow morning. Pain is controlled at this time. Discussion: IV contrast use for CT imaging. Appropriate for admission for acute cholecystitis. Antibiotics started pain controlled. General surgeon contacted. Diagnosis: Acute cholecystitis Discharge Plan Departure Patient Disposition: Admitted as Observation Clinical Impression: Acute calculous cholecystitis Admit Date/Time: 08/03/25 13:54 Admit Provider: Jens Roberson
--- NOTE | 2025-08-03 11:13 | DI.CT.S_ITS ---
PROCEDURE: CT ANGIO CHEST ABDOMEN PELVIS INDICATIONS: Chest pain abdominal pain TECHNIQUE: Precontrast 5 mm thick sections acquired from the lung apices to the iliac crests. After the administration of intravenous contrast, 2.5 mm thick sections again acquired from the lung apices to the iliac crests. Maximum intensity projection (MIP) oblique sagittal and coronal reformats were then acquired. For radiation dose reduction, the following was used: automated exposure control. COMPARISON: [facility], CT, CT ABDOMEN PELVIS W CON, 08/01/2025, 13:51. FINDINGS: Image quality: Diagnostic. AORTA: No aortic aneurysm. No acute aortic syndrome. CHEST: Lower Neck: No enlarged lymph nodes. Thyroid: No thyroid nodules which require sonographic evaluation. Axillae: No enlarged lymph nodes. Chest Wall: Unremarkable. Lungs and Pleura: No pneumothorax or pleural effusions. No consolidation or suspicious nodules. Heart: Heart size is normal. No pericardial effusion. Thoracic Vessels: Pulmonary arteries is prominent in size which can be seen associated with pulmonary vascular hypertension. Mediastinum and Charla: Borderline enlarged pretracheal lymph no measures 1 cm in short axis diameter series 5, image 64. Esophagus: No wall thickening. Small hiatal hernia. ABDOMEN: Liver: No solid mass. Gallbladder: Distended gallbladder with suggestion of gallbladder wall thickening. No calcified gallstones are seen. Biliary ducts: No biliary dilation. Pancreas: No ductal dilation. Spleen: Size is within normal limits. Adrenal Glands: No adrenal nodules. Kidneys and Ureters: No hydronephrosis. No solid mass. No complex renal cystic lesion which requires follow up. Stomach and Bowel: Normal colonic caliber, without significant wall thickening. Normal appendix. No abscess collection. Sigmoid diverticulosis without CT evidence of acute diverticulitis. Peritoneum: No abnormal intraperitoneal fluid. No free air. Ventral Wall: No hernia. Abdominal Nodes: No retroperitoneal or mesenteric adenopathy by size criteria. Vessels: Inferior vena cava is normal in size. PELVIS: Pelvic Organs: Unremarkable. Bladder: Unremarkable. Pelvic Nodes: No enlarged lymph nodes. Miscellaneous: No inguinal hernias are seen. Bones: No aggressive appearing bony lesions. Degenerative disc disease throughout thoracic and lumbar spine is seen. No acute vertebral body compression fractures. IMPRESSION: 1. No aortic aneurysm or dissection. 2. Prominent size of main pulmonary artery which can be seen associated with pulmonary vascular hypertension suggest clinical correlation. 3. No focal infiltrate, pleural effusion or pneumothorax. 4. Mildly distended gallbladder with questionable gallbladder wall thickening and enhancement. Early acalculous cholecystitis cannot be excluded. Clinical correlation is recommended. No gross biliary ductal dilatation. 5. Normal appendix. No bowel obstruction or abnormal bowel wall thickening. Colonic diverticulosis without CT evidence of of acute diverticulitis. No free fluid or free air. 6. Other chronic findings as above. Dictated by: Patricio Morfin M.D. on 08/03/2025 at 12:13 Approved by: Patricio Morfin M.D. on 08/03/2025 at 12:23
[2025-08-03 11:14] LABS: INR 1.0 (0.9-1.3); Prothrombin Time 11.3 SECONDS (9.4-12.5)
[2025-08-03 11:17] LABS: PTT Partial Thromboplastin Tim 26 SECONDS (25.1-36.5)
[2025-08-03 11:21] LABS: Alanine Aminotransferase 192 IU/L (<35); Albumin 4.5 g/dL (3.5-5.0); Albumin Globulin Ratio 1.2 (1.0-2.8); Alkaline Phosphatase 103 U/L (38-126); Blood Urea Nitrogen 19 mg/dL (7-17); Calcium 9.3 mg/dL (8.4-10.2); Carbon Dioxide 25 mmol/L (22-32); Chloride 103 mmol/L (98-107); Creatine Kinase 113 U/L (30-135); Estimated Glomerular Filt Rate 60 mL/min (>60); Globulin 3.9 g/dL (1.7-4.1); Glucose 200 mg/dL (70-99); HEMOLYSIS < 15 (0-50); Lipase 62 U/L (23-300); Magnesium 2.0 mg/dL (1.6-2.3); Potassium 4.1 mmol/L (3.4-5.1); Sodium 137 mmol/L (137-145); Total Protein 8.4 g/dL (6.3-8.2)
[2025-08-03 11:28] LABS: Lactate (Lactic Acid) 1.2 mmol/L (0.7-2.1)
[2025-08-03 11:31] LABS: NT-proBNP (BNP-Adult 18+) 131 pg/mL (<125); Troponin I < 0.012 ng/mL (0.01-0.034)
[2025-08-03] MEDS: PANTOPRAZOLE 40 MG VIAL IV (11:40)
[2025-08-03] MEDS: ONDANSETRON 4 MG/2 ML INJ IV (11:40)
[2025-08-03] MEDS: MORPHINE 4 MG/ML INJ 2 MG IV (11:40)
--- NOTE | 2025-08-03 12:48 | DI.US.S_ITS ---
PROCEDURE: US ABDOMEN LIMITED INDICATIONS: Upper abdominal pain, attention gallbladder TECHNIQUE: Real-time scanning was performed of the abdominal and retroperitoneal organs, with image documentation. COMPARISON: [facility], CT, CT ANGIO CHEST ABDOMEN PELVIS, 08/03/2025, 11:17. FINDINGS: Liver: Liver is normal in size and homogeneous in echotexture. Gallbladder: Numerous gallstones are present in the gallbladder. Distended gallbladder. It is uncertain by ultrasound whether there is wall thickening. However wall thickening and inflammatory change adjacent to the gallbladder seen CT. No sonographic Romo sign. Biliary ducts: Intrahepatic bile ducts are non-dilated. Extrahepatic bile duct caliber measures 6.4 mm. Normal is 6-7 mm or less in diameter, or 10 mm or less post-cholecystectomy. Pancreas: Visualized portions of the pancreas are sonographically normal. Miscellaneous: No free abdominal fluid. IMPRESSION: Findings may potentially correlate with a diagnosis acute cholecystitis despite the lack a Romo sign. Recommend correlation with clinical examination. Consider HIDA study. Consider MRCP with contrast. Dictated by: Ronen Hastings M.D. on 08/03/2025 at 13:27 Approved by: Ronen Hastings M.D. on 08/03/2025 at 13:31
[2025-08-03] MEDS: MAG HYDROX/ALUMINUM/SIMETH SUS 20 ML, LIDOCAINE VISCOUS 2% 15 ML PO (13:35)
[2025-08-03] MEDS: SODIUM CHLORIDE 0.9% 1,000 ML 1000 ML IV (13:35)
[2025-08-03] MEDS: metroNIDAZOLE 500 MG/100 ML PIGGYBACK 100 MG IV ×2 (14:09→21:54)
[2025-08-03] MEDS: cefTRIAXone 2,000 MG in SODIUM CHLORIDE 0.9% 100 ML 200 MG IV (14:09)
[2025-08-03] MEDS: SODIUM CHLORIDE 0.9% 1,000 ML 125 ML IV ×2 (14:30→23:47)
[2025-08-03] MEDS: hydrALAZINE 20 MG/ML VIAL 10 MG IV (15:17)
--- NOTE | 2025-08-03 15:23 | PC.NURSE ---
Mila Hart [phone] Pt emergency contact.
--- NOTE | 2025-08-03 16:25 | CM.DANOTE ---
DCP Assessment Note: Pt is a 74yo female, resident [facility], is admitted for acute cholecystitis. Pt is currently staying with a friend, Irma. Pt's Primary Care Provider is Dr. Quan Rodrigues and insurance is [employer]. Reviewed chart and discussed with multidisciplinary team pt's medical status and initial discharge needs. Per ED Provider, pt to be admitted under General Surgery service with plans for IV abx and scheduled cholecystectomy on 08/04. DCP met w/patient at bedside; introduced self and role. Patient was found in bed, alert and oriented, cooperative with assessment. Pt confirmed living situation and good support in friendIrma ph# [phone]. Pt reports she is currently going through a separation from and would prefer he not be part of any of her care this admission. Pt expressed preference in discharge home when cleared. Pt has a hx of [facility] after surgery in 2023 and no history of SNF Rehab. Plan: Anticipating discharge home with friend, Irma, to transport when medically cleared. CM team will follow closely for coordination of discharge plans. LYNN Castanon Discharge Planning/Care Management CM Discharge Assessment Start: 08/03/25 14:52 Freq: Status: Active Protocol: Document 08/03/25 16:23 MW (Rec: 08/03/25 16:25 MW [id number]) Discharge Planning Assessment Assigned Discharge [place] [facility] Guest House Manager Provider Dr. Quan Rodrigues Insurance [employer] DPOA/Assigned Omega Reed, Spouse Designee Name Contact Information [phone] Advance Directives? No History Provided By Patient,Medical Record Has Patient been No admitted in last 30 days? Prior Living House Arrangements Comment Currently staying with a friend, going through a separation from spouse Type of Drives own vehicle transporation used prior to admit Independent with ADL Yes 's Is patient alert and Yes oriented? Discharge Plan Home Transportation FriendIrma ph# [phone] Arrangement Review Status In Process Please Provide Date 08/03/25 Initial DC Assessment Was Performed Next Review Type Continued Stay Review
--- NOTE | 2025-08-03 17:57 | PM.HP.IH.1 ---
History of Present Illness History of Present Illness Date Patient Seen: 08/03/25 Time Patient Seen: 17:57 Chief complaint: High blood pressure, not feeling well 205/118 Narrative: 74yo F, admitted through ED with acute cholecystitis. CT with wall thickening and edema. U/S with distended gallbladder and gallstones. LFTs 4.8/378/192/103. Recent ED for similar symptoms with normal LFTs. 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 FOR[facility]LY [facility] Medical History (Updated 08/03/25 @ 14:01 by Ryan Bean MD) Hypertension Social History household members: spouse Smoking Status: Never smoker alcohol intake: current Meds Home Medications and Allergies Home Medications ?Medication ?Instructions ?Recorded ?Confirmed ?Type hydrocodone 5 mg-acetaminophen 325 0.5 - 1 tab PO Q6H PRN pain #10 03/03/24 08/03/25 Rx mg tablet tabs ondansetron HCl 4 mg tablet 4 mg PO Q8H PRN nausea and 08/01/25 08/03/25 Rx vomiting #30 tabs clobetasol 0.05 % topical cream 1 applic topical BID PRN rash 08/03/25 08/03/25 History levothyroxine 125 mcg tablet 125 mcg PO DAILY 08/03/25 08/03/25 History (Synthroid) lisinopril 10 mg tablet 10 mg PO DAILY 08/03/25 08/03/25 History Allergies Allergy/AdvReac Type Severity Reaction Status Date / Time Quinolones Allergy SVT Verified 08/03/25 10:47 prochlorperazine (From AdvReac feel ugh Verified 08/03/25 10:47 Compazine) Sulfa (Sulfonamide AdvReac Rash Verified 08/03/25 10:47 Antibiotics) Exam Vital Signs (past 8 hours): - 08/03/25 10:36 08/03/25 10:41 08/03/25 10:41 Temperature 98.7 F Pulse Rate 87 89 Respiratory Rate 14 Blood Pressure 227/108 H 227/108 H Pulse Oximetry 98 98 Oxygen Delivery Method Room Air 08/03/25 11:00 08/03/25 11:01 08/03/25 11:01 Temperature Pulse Rate 97 H 97 H Respiratory Rate Blood Pressure 219/102 H Pulse Oximetry 98 98 Oxygen Delivery Method 08/03/25 11:30 08/03/25 11:30 08/03/25 12:10 Temperature Pulse Rate 98 H 85 Respiratory Rate Blood Pressure 212/101 H Pulse Oximetry 99 99 Oxygen Delivery Method 08/03/25 12:11 08/03/25 12:11 08/03/25 12:30 Temperature Pulse Rate 85 84 Respiratory Rate Blood Pressure 218/90 H Pulse Oximetry 99 96 Oxygen Delivery Method 08/03/25 12:31 08/03/25 12:31 08/03/25 13:00 Temperature Pulse Rate 84 89 Respiratory Rate Blood Pressure 174/75 H Pulse Oximetry 96 98 Oxygen Delivery Method 08/03/25 13:01 08/03/25 13:01 08/03/25 13:38 Temperature Pulse Rate 90 Respiratory Rate 18 Blood Pressure 155/72 H 181/79 H Pulse Oximetry 100 Oxygen Delivery Method Room Air 08/03/25 13:38 08/03/25 14:00 08/03/25 14:00 Temperature Pulse Rate 90 99 H Respiratory Rate Blood Pressure 198/85 H Pulse Oximetry 97 99 Oxygen Delivery Method 08/03/25 14:30 08/03/25 14:31 08/03/25 14:31 Temperature Pulse Rate 90 89 Respiratory Rate Blood Pressure 197/84 H Pulse Oximetry 98 98 Oxygen Delivery Method 08/03/25 15:00 08/03/25 15:01 08/03/25 15:01 Temperature Pulse Rate 90 90 Respiratory Rate 12 19 Blood Pressure 203/93 H Pulse Oximetry 97 98 Oxygen Delivery Method 08/03/25 15:17 08/03/25 15:30 Temperature Pulse Rate 93 H 95 H Respiratory Rate 21 Blood Pressure 203/93 H 175/77 H Pulse Oximetry 97 Oxygen Delivery Method Oxygen Delivery Method Room Air Narrative Exam Narrative: Const General: healthy appearing, comfortable and no acute distress Orientation: alert and oriented x3 HENMT Ears: hearing grossly normal bilaterally Eyes Visual Rosado: normal visual rosado by confrontation Conjunctivae: conjunctivae normal Sclera: sclerae normal EOM: EOM intact bilaterally Resp Effort & Inspection: normal respiratory effort and able to speak in complete sentences Cardio Rate: regular rate GI Palpation: soft, +RUQ tenderness Extrem General: no pedal edema and no calf tenderness Objective Labs 08/03/25 11:00 08/03/25 11:00 Labs: Laboratory Results - last 24 hr 12/01/25 11:00 WBC 9.5 RBC 4.99 Hgb 14.7 Hct 43.5 MCV 87.3 MCH 29.5 MCHC 33.8 RDW 14.9 H Plt Count 231 Neut % (Auto) 77.6 H Lymph % (Auto) 15.3 L [place] % (Auto) 6.2 Eos % (Auto) 0.6 L Baso % (Auto) 0.3 Neut # (Auto) 7400 H Lymph # (Auto) 1500 [place] # (Auto) 600 Eos # (Auto) 100 Baso # (Auto) 0 PT 11.3 INR 1.0 APTT 26 Sodium 137 Potassium 4.1 Chloride 103 Carbon Dioxide 25 BUN 19 H Creatinine 0.99 Estimated GFR 60 BUN/Creatinine Ratio 19.2 Glucose 200 H Lactate 1.2 Calcium 9.3 Magnesium 2.0 Total Bilirubin 4.8 H AST 378 H ALT 192 H Alkaline Phosphatase 103 Total Creatine Kinase 113 Troponin I < 0.012 NT-Pro-B Natriuret Pep 131 H Total Protein 8.4 H Albumin 4.5 Globulin 3.9 Albumin/Globulin Ratio 1.2 Lipase 62 D Assessment & Plan Assessment and plan (1) Acute calculous cholecystitis: Status: Acute Plan Plan laparoscopic cholecystectomy with cholangiogram. The risks, benefits and options regarding the procedure were explained to the patient in detail. Risk discussion included but not limited to: open incision, bleeding, infection, bile duct injury, bile leak, abscess, drain, need for ERCP, retained stone. The patient was encouraged to ask questions and they were answered to their satisfaction. The patient understands and is agreeable to proceed. Time-Based Coding :: [TOTAL MINUTES] spent with patient and on the chart (including review of chart, obtaining history, exam, reviewing outside data, placing orders, documenting exam and treatment plan, and counseling patient) on [DATE]. 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
[2025-08-03] MEDS: ACETAMINOPHEN 325 MG TABLET 650 MG PO (19:47)
--- NOTE | 2025-08-03 19:48 | PC.NURSE ---
Patient arrived from ED this evening A&OX4, SBP improved. She c/o of mild CHILDERS and 4/10 abdominal pain. Admission assessment completed, oriented to unit routine, IVF NS at 125ml/hr, call light in reach. MD Roberson arrived this evening to discuss procedure tomorrow with patient. She remains NPO for cholecystectomy tomorrow as an add on. Continuous monitoring.
[2025-08-04] VITALS (14 sets, daily range): BP systolic 133–189; BP diastolic 64–95; PULSE 76–104; RESP 12–20; TEMP 36.3–37.2; O2SAT 94–100
--- NOTE | 2025-08-04 | PATH_ITS ---
[facility] Accession Number: [id number] No. of containers..01 Tissue . 01 Material submitted: . gallbladder - GALLBLADDER . 01 Diagnosis: GALLBLADDER: Acute and chronic cholecystitis and cholelithiasis with focal disruption, non-specific. LYK 08/10/2025 1710 Local . 01 Electronically signed: . Bessy Zavaleta MD, Pathologist NPI- [id number] . 01 Gross description: . Received in formalin with two patient identifiers, and gallbladder is a 9.5 x 3.4 x 2.1 cm, focally disrupted gallbladder. The stapled cystic duct margin is inked blue. The serosa is haider-brown, ragged and hemorrhagic. The mucosa is brown, roughened, and dusky. The wall is 0.2-0.4 cm thick. The lumen contains green, grumous material and multiple 0.3-0.6 cm yellow nodular calculi focally obstructing the cystic duct. Lymph nodes are not grossly identified. Veterinary Surgery Technician sections to include cystic duct margin and gallbladder wall are submitted in A1. ([id number]) /MRV 08/05/2025 1516 Local . 01 Pathologist provided ICD-10: K81.2 . 01 CPT . 705054 Specimen Comment: A courtesy copy of this report has been sent to [facility] Pathology Performed at: [address] [address], [place], [place] [id number] MD Nicholas Beck MD Phone: [phone]
[2025-08-04] MEDS: ONDANSETRON 4 MG/2 ML INJ IV ×3 (00:08→19:37)
[2025-08-04] MEDS: metroNIDAZOLE 500 MG/100 ML PIGGYBACK 100 MG IV ×3 (06:16→21:50)
--- NOTE | 2025-08-04 07:03 | PM.PREOP ---
Pre-operative Note Interval Note History & Physical reviewed/Exam performed by Physician: Yes Changes to H&P: No ASA Class (for procedural sedation): II
--- NOTE | 2025-08-04 08:42 | SUR.OPER ---
Supine on padded OR bed, head on pillow, left arm secured on padded arm board at <90 degrees abduction, right arm padded and tucked, legs uncrossed, safety belt at thigh, tape over blanket over lower legs. Footboard.
[2025-08-04] MEDS: LACTATED RINGERS 1,000 ML 42 ML IV (08:59)
[2025-08-04] MEDS: BUPivacaine 0.25% W/ EPI (PF) 30 ML VIAL 60 ML INJ (09:54)
--- NOTE | 2025-08-04 10:39 | DI.RAD.S_ITS ---
PROCEDURE: XR CHOLANGIOGRAM OPERATIVE INDICATIONS: ACUTE CHOLECYSTITIS COMPARISON: None. FINDINGS: Biliary ducts: The surgeon injected contrast into the biliary ducts after cannulation of the cystic duct stump. Visualized intra- and extrahepatic bile ducts are normal in caliber, without strictures. No evidence for iatrogenic ductal injury. The 1st images obscured by instruments. Second image demonstrates no gross filling defect. Third image demonstrates 2 small filling defects at the level of the distal common bile duct more likely related to gas within the duct or irregularity at the sphincter than distal common bile duct small stones or sludge. If there is clinical suspicion of retained stone MRCP/ERCP could be performed. Duodenum: Contrast flows promptly through the sphincter of Oddi into the duodenum, which appears normal in caliber. IMPRESSION: Intraoperative cholangiogram as discussed above. Dictated by: Luis Espinosa M.D. on 08/04/2025 at 17:26 Approved by: Luis Espinosa M.D. on 08/04/2025 at 17:29
--- NOTE | 2025-08-04 11:16 | PM.OP.1 ---
Operative Date/Time/Diagnoses Date of procedure: 08/04/25 Time of procedure: 11:16 Pre-op diagnosis: Acute cholecystitis Post-op diagnosis: same (choledocholithiasis) Procedure & Clinicians Procedure: Laparoscopic cholecystectomy with cholangiogram Same procedure(s) as scheduled: Yes Indications: 74yo F, acute cholecystitis, elevated LFTs. Surgeon: Jens Roberson Assisted?: No Anesthesia Type: General Operative Notes Findings: Acute cholecystitis, ischemic areas on gallbladder wall, aspirated 60cc near hydrops fluid, +cholangiogram, mobile stone in distal CBD, could not flush out with saline/glucagon Specimen(s): other (gallbladder) Applied: none Estimated Blood Loss (mL): 10 Blood products transfused: none Procedure in detail: After informed consent and satisfactory general endotracheal anesthesia, the abdomen was prepped and draped in the usual sterile manner.? The patient received appropriate preoperative antibiotics and DVT prophylaxis.? Surgical time-out was performed with all team members in agreement.? The pneumoperitoneum was established under direct vision using the Patterson direct trocar cutdown technique.? An 0 Vicryl cnyamz-mr-fpknk suture was placed on the umbilical fascia.? The 10 mm 30 degree lens was inserted and no trauma secondary to the trocar insertion was noted.? We performed bilateral laparoscopic TAP blocks using 25 cc of 0.25% Marcaine with epinephrine.? The additional 10 cc of local was used in the skin and subcutaneous tissues at the incision sites for a total of 60 cc of local.? The patient was placed in reverse Trendelenburg, pvrwh-znnr-ig position.? The gallbladder was severely inflamed with areas of necrosis. There were extensive omental adhesions to the gallbladder taken down with blunt and sharp dissection. I had to aspirate 60cc of orange turbid fluid, near hydrops, to aid grasping. The fundus of the gallbladder was grasped and retracted over the liver.? The infundibulum was retracted laterally for proper exposure of the cystic duct and artery.? Critical view of safety was achieved with 2 distinct structures entering the gallbladder and segment 5 of the liver posterior.? A cholangiogram was performed using a yellow ureteral catheter through the Carter clamp.? The cystic duct and cystic artery were skeletonized with hook cautery.? A clip was placed on the cystic duct next to the gallbladder.? A ductotomy was made with laparoscopic Metzenbaum scissors. and this returned a yellow cholesterol stone. Two additional stones were milked out of the cystic duct using the [place] grasper. This facilitated insertion of the catheter. The cholangiogram demonstrated mildly dilated ducts with a small stone in the distal CBD. We gave Glucagon 1mg IV per anesthesia and flushed saline through the catheter but were unable to flush the stone. The contrast did flow into the duodenum without much obstruction from the stone.? The cholangiogram catheter was removed and the cystic duct was triple clipped and divided.? The cystic artery was similarly skeletonized, doubly clipped and divided with laparoscopic Metzenbaum scissors.? The adhesions between the gallbladder and the liver were divided with hook cautery.? The gallbladder was placed into an endo-pouch and removed.? The gallbladder bed and clips were inspected and no bleeding or bile drainage was noted.? No drain indicated. The trocars were removed and there was no bleeding noted at the trocar sites.? The 0 Vicryl objuqx-yj-ibcia suture was tied and there were no palpable fascial defects.? The skin incisions were closed using 4-0 Monocryl in a subcuticular manner.? Dermabond glue was applied as a final dressing.? The estimated blood loss was minimal.? The instrument sponge and needle counts were all correct x2.? The patient tolerated the procedure well and was extubated in the operating room and transported to the recovery area in stable condition. I spoke with Dr. Sebastian at [facility] who will perform ERCP tomorrow. We will transfer her for procedure and then back to for recovery. Complications: none Post-operative Condition: stable Disposition: PACU Plan for aftercare: PACU then floor.
[2025-08-04] MEDS: hydrOXYzine 50 MG/ML INJ 25 MG IM (11:26)
[2025-08-04] MEDS: MORPHINE 4 MG/ML INJ IV ×2 (11:29→11:38)
[2025-08-04] MEDS: hydrALAZINE 20 MG/ML VIAL 10 MG IV (11:34)
[2025-08-04] MEDS: SODIUM CHLORIDE 0.9% 1,000 ML 125 ML IV ×2 (13:17→23:22)
[2025-08-04] MEDS: cefTRIAXone 2,000 MG in SODIUM CHLORIDE 0.9% 100 ML 200 MG IV (14:11)
[2025-08-04] MEDS: MORPHINE 2 MG/ML INJ IV ×2 (14:54→19:36)
[2025-08-05] VITALS (7 sets, daily range): BP systolic 99–191; BP diastolic 74–102; PULSE 81–97; RESP 15–17; TEMP 36.6–37; O2SAT 97–98
[2025-08-05] MEDS: metroNIDAZOLE 500 MG/100 ML PIGGYBACK 100 MG IV ×2 (05:36→22:31)
--- NOTE | 2025-08-05 08:25 | P.PN_ITS ---
Subjective Subjective Date Patient Seen: 08/05/25 Time Patient Seen: 06:30 Interval history: Groggy No n/v Pain reasonably controlled Exam Vital Signs (past 8 hours): - 08/05/25 01:00 08/05/25 06:00 Temperature 98.0 F 98.6 F Pulse Rate 91 H 89 Respiratory Rate 15 16 Blood Pressure 99/74 161/83 H Pulse Oximetry 97 98 Oxygen Flow Rate 0 0 Oxygen Delivery Method Room Air Oxygen Flow Rate 0 Narrative Exam Narrative: ABD: Incisions CDI, pain appropriate for postop Objective Labs 08/03/25 11:00 08/03/25 11:00 COUNTS INCLUDE 234 BEDS AT THE [facility] Medical History (Updated 08/05/25 @ 08:26 by Jens Roberson MD) Hypertension Social History household members: spouse Smoking Status: Never smoker alcohol intake: current Assessment & Plan Assessment and plan (1) Acute calculous cholecystitis: Status: Acute (2) Choledocholithiasis with acute cholecystitis with obstruction: Status: Acute Plan POD#1 lap choley To [facility] today for ERCP this afternoon, then transfer back to Anticipate one more night inpatient, possible home 08/06 Monitor for postop ERCP pancreatitis Time-Based Coding :: [TOTAL MINUTES] spent with patient and on the chart (including review of chart, obtaining history, exam, reviewing outside data, placing orders, documenting exam and treatment plan, and counseling patient) on [DATE]. 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
--- NOTE | 2025-08-05 13:23 | PC.NURSE ---
Addendum entered by Patricia Hudson RN 08/05/25 13:33: Report given to Andreas HARRISON at [facility]. Original Note: EMS arrived to transport pt to [facility] at 1324 via stretcher.
--- NOTE | 2025-08-05 18:16 | PC.NURSE ---
Pt returned to acute care at appx 1810 via ambulance. RN did not receive a call or report from anyone at [facility]. The EMS who brought the pt in did not have any pertinent information either. RN called [facility] endoscopy, but the unit was closed. RN notified accreditation coordinator.
[2025-08-05] MEDS: hydrALAZINE 20 MG/ML VIAL 10 MG IV (18:26)
[2025-08-05] MEDS: MORPHINE 2 MG/ML INJ IV (18:33)
[2025-08-06] VITALS (7 sets, daily range): BP systolic 108–155; BP diastolic 70–86; PULSE 42–99; RESP 14–18; TEMP 36.4–36.7; O2SAT 94–99
[2025-08-06] MEDS: SODIUM CHLORIDE 0.9% 1,000 ML 125 ML IV ×2 (00:41→09:38)
[2025-08-06] MEDS: metroNIDAZOLE 500 MG/100 ML PIGGYBACK 100 MG IV ×2 (05:34→16:55)
[2025-08-06] MEDS: LEVOTHYROXINE 125 MCG TABLET PO (05:34)
[2025-08-06 06:35] LABS: Alanine Aminotransferase 111 IU/L (<35); Albumin 3.2 g/dL (3.5-5.0); Albumin Globulin Ratio 1.1 (1.0-2.8); Alkaline Phosphatase 87 U/L (38-126); Globulin 3.0 g/dL (1.7-4.1); HEMOLYSIS < 15 (0-50); Lipase 40 U/L (23-300); Total Protein 6.2 g/dL (6.3-8.2)
--- NOTE | 2025-08-06 06:40 | PM.PN.IH.1 ---
Subjective Subjective Date Patient Seen: 08/06/25 Time Patient Seen: 06:40 Interval history: Tolerating liquids after ERCP No n/v Exam Vital Signs (past 8 hours): - 08/06/25 00:00 08/06/25 04:00 Temperature 97.9 F 98.0 F Pulse Rate 99 H 91 H Respiratory Rate 18 16 Blood Pressure 151/84 H 155/84 H Pulse Oximetry 96 98 Oxygen Flow Rate 0 0 Oxygen Delivery Method Room Air Oxygen Flow Rate 0 Narrative Exam Narrative: ABD: incisoins CDI, tenderness appropriate for postop Objective Labs 08/03/25 11:00 08/03/25 11:00 Labs: Laboratory Results - last 24 hr 08/06/25 06:04 Total Bilirubin 1.0 Conjugated Bilirubin 0.0 Unconjugated Bilirubin 0.2 AST 60 H ALT 111 H Alkaline Phosphatase 87 Total Protein 6.2 L Albumin 3.2 L Globulin 3.0 Albumin/Globulin Ratio 1.1 Lipase 40 PFSH Medical History (Updated 08/05/25 @ 08:26 by Jens Roberson MD) Hypertension Social History household members: spouse Smoking Status: Never smoker alcohol intake: current Assessment & Plan Assessment and plan (1) Choledocholithiasis with acute cholecystitis with obstruction: Status: Acute Plan POD#2 lap choley POD #1 ERCP LFTs markedly improved, bili normal Lipase normal c/w no post-ERCP pancreatitis Plan home later today if tolerates diet Time-Based Coding :: [TOTAL MINUTES] spent with patient and on the chart (including review of chart, obtaining history, exam, reviewing outside data, placing orders, documenting exam and treatment plan, and counseling patient) on [DATE]. 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
[2025-08-06 07:30] LABS: Lipase 45 U/L (23-300)
--- NOTE | 2025-08-06 10:51 | CM.DPNOTE ---
DCP note MOTOR AND CONTROLS TESTER received request from CHRISTY Brown to speak with pt. per RN RENYP, pt requested to speak with a oncology social worker re: Dan[employer] Care application. MOTOR AND CONTROLS TESTER entered room and introduced self and role to pt. pt's friend Irma on speaker phone. MOTOR AND CONTROLS TESTER reviewed pt's danii care application- from what this MOTOR AND CONTROLS TESTER could tell, application filled out to completion, missing only proof of income and signature, explained that to pt. MOTOR AND CONTROLS TESTER informed pt and friend how to turn the form in and the right contact for further questions. Friend and pt dissatisfied that this MOTOR AND CONTROLS TESTER could not provide an itemized billing list/more direct information on her danii packet case. MOTOR AND CONTROLS TESTER attempted to provide education on the proper departments to answer those billing related questions. CHRISTY Brown provided contact numbers for billing, patient accounts and quality for pt to contact. Friend/pt requested that a oncology social worker meet with them after working with PT. MOTOR AND CONTROLS TESTER educated pt/friend that an credit collections clerk can navigate and set up any DCP coordination from here on out. See RN DCP note for more. manager transplant rehabilitation supervisor Chantal/ACU/ICU Director updated and aware of ongoing situation. [place]
--- NOTE | 2025-08-06 11:07 | CM.DPC ---
Addendum entered by Stephanie Anderson RN 08/06/25 15:31: AC and ICU Director, Mila, and CM at bedside. Mila provided the Patient Advocate ph# to patient and answered all questions from patient and patient's friend, Irma, via cell phone on speaker mode, related to Plan of Care, billing, and discharge needs. Original Note: Senior resources provided. All questions answered regarding Danii application.
--- NOTE | 2025-08-06 11:23 | CM.DPC ---
DCP Cont. Pt and her friend (by phone) had been expressing concerns to her nurse that the social sciences chair (it was actually our UR nurse) delivered the HICKS form to patient, and obtained her signature, without the patient realizing what she was signing. Nancy actually went in and explained the HICKS form, and pt was alert/oriented, and able to express understanding what was being discussed. It was several hours after surgery. This DIGITAL MUSIC INSTRUCTOR went in with Marlyn, our other UR RN, and also explained this, along with what the HICKS for was for, and that it was simply a notification that she was in OBS status at that time. Her friend on the phone on speaker was not understanding, and was demanding why she only qualified for OBS at the time. By the time this DIGITAL MUSIC INSTRUCTOR and Marlyn went in, yesterday am, the patient had already been switched to INPT due to her need for an ERCP, transfer/treat to [facility]. Her friend was demanding that pt not sign the transfer form to go to [facility] for the procedure, and stated, you (me) need to get on that phone and give us an estimate right now how much that ambulance is going to cost. This DIGITAL MUSIC INSTRUCTOR explained that it depends on her insurance, her deductable, and that the bill does not drop right away. DIGITAL MUSIC INSTRUCTOR also explained that this friend would be welcome to call, and this DIGITAL MUSIC INSTRUCTOR provided the contact information for her, as well as the Quality phone number. They then stated, you need to get on the phone with the insurance company and tell us how much [facility] is going to charge her. This DIGITAL MUSIC INSTRUCTOR again explained that there is no way of us knowing how much [facility] would charge, and again, encouraged pt to call her insurance company. Pt was very alert/oriented, and had been on the phone already with her friend for extended conversations that am. Her friend then stated that, as the social sciences chair, I needed to do this and whatever else that they needed. DIGITAL MUSIC INSTRUCTOR was unable to do this, as pt and her friend were both very capable, and there was high acuity on the floor. Marlyn, our UR nurse, explained that if she didn't want to sign the transfer form, and go to [facility] for her ERCP, her gallbladder could erupt, and it would cost more money and time in the hospital if that were to happen. Pt stated she was going through a divorce and did not want to be billed anything, and that her deductable was $5,000. This DIGITAL MUSIC INSTRUCTOR then provided the [facility] Care packet to patient, and explained how to fill it out in order to not be letting financial concerns be a barrier for her care. DIGITAL MUSIC INSTRUCTOR also provided emotional support and made sure that pt was understanding everything discussed, which was much easier once her friend got off the phone. She did end up having the procedure, and is doing well today.
--- NOTE | 2025-08-06 14:41 | PT.IIE ---
Current Diagnoses Calculus of gallbladder with acute cholecystitis without obstruction (08/05/25) Calculus of bile duct with acute cholecystitis with obstruction (08/05/25) Surgery Performed Operation Date: 08/04/25 14:15 Actual Procedures p Laparoscopic Cholecystectomy with IOC(Not Applicable) - Jens Roberson MD Medical History (Last Updated 03/03/24 @ 13:53 by Judy Crane MD) Hypertension Physical Therapy Inpatient Evaluation/Re-Eval M1 PT IP Prior Functional Status Start: 08/06/25 14:40 Freq: NEEDED Status: Active Protocol: Document 08/06/25 14:41 DLM (Rec: 08/06/25 15:10 DLM Desktop) Medical Review Prior Functional Status Medical History Yes Reviewed Diet/Fluid Regular Consistency Communication WNL Mobility and Gait Independent without device Activities of Daily Independent Living and IADL's Prior Functional 03/2024 she suffered trimalleolar fracture s/p ORIF Level (Other details ) Social History Household Members spouse Living Arrangements House Number of Floors ( One Floor Floors) Number of Stairs To 2 steps to enter with rail Enter/Railing? 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 History Comment She is staying with her friend who has 3 children with seizures. Pt reports she may be able to stay with her Son after this hospitalization. She is getting a divorce and is from Spouse. she used a bedside commode after her ankle surgery. M2 PT-IP Current Condition Start: 08/06/25 14:40 Freq: NEEDED Status: Active Protocol: Document 08/06/25 14:41 DLM (Rec: 08/06/25 15:10 DLM Desktop) Physical Therapy Current Condition Current Condition Evaluation Date 08/06/25 Treatment Diagnosis lap keith, impaired mobility/gait Onset Date 08/05/25 M3 PT-IP Subjective Start: 08/06/25 14:40 Freq: NEEDED Status: Active Protocol: Document 08/06/25 14:41 DLM (Rec: 08/06/25 15:10 DLM Desktop) Subjective Physical Therapy Visit Type Type Initial Evaluation Visit Start Time 14:10 Visit Stop Time 14:41 Notes 31 min Number of HOSE HANDLER Visits 0 Physical Therapy Visit Comments Patient Comments She reports abdominal soreness today. Her friend Irma is worried about what kind of help she will need at home. Patient Goals Discharge home Therapy Pain Assessment Pain When Pain Assessed During Mobility Pain Present Pain Present Pain Reported Location upper abd Intensity 5 Scale Used Numeric (0 - 10) Description Aching,Tender,With Movement Pain Behaviors Facial Grimacing,Holding Area Pain Management Re-positioning,Timing of Activity with Medications Techniques M4 PT-IP Mobility and Gait Start: 08/06/25 14:40 Freq: NEEDED Status: Active Protocol: Document 08/06/25 14:41 DLM (Rec: 08/06/25 15:10 DLM Desktop) PT-Bed Mobility Assessment Rolling Level of Assist Independent Supine to Sit Supine to Sit Independent Sit to Supine Sit to Supine Independent Scooting Scooting to Edge of Independent Bed PT-Transfer Assessment Sit to and From Stand Sit to and from Independent,Use of Upper Extremities Stand Transfers Transfer Destination Bed Transfer Technique Stand Step Pivot Transfer Ability Level of Assist Independent,Use of Upper Extremities Comments Mobility Comments Educated pt to use sidelying to get in/out of bed. Gait Assessment Gait Gait Assistance Independent Required: Distance (Feet) 300 Assistive Devices Assistive Device None Factors Limiting Gait Function Factors Limiting Decreased Activity Tolerance Gait Function Comments Gait Comments slow pace of gait with pt holding her abdominal area with hand, no losses of balance Stair Climbing Assessment Evaluation Level of Assist On Independent Stairs Devices Stair Climbing Right Railing Assistive Devices Technique/Endurance Stair Climbing Ascend and Descend Direction Stair Climbing Step Over Step Technique Number of Steps 3 Climbed Query Text: Stair Climbing Set # 2 Repetitions (reps) Comments Stair Climbing abdominal pain but able to safely complete the stairs, Comments pt reports more pain if she leads with left foot up compared to right PT-Balance Assessment Sitting Balance and Reactions Static Sitting Good Balance Ability Dynamic Sitting Good Balance Ability Standing Balance and Reactions Static Standing Good Balance Ability Dynamic Standing Good Balance Ability M5 PT-IP Objective Assessments Start: 08/06/25 14:40 Freq: NEEDED Status: Active Protocol: Document 08/06/25 14:41 DLM (Rec: 08/06/25 15:10 DLM Desktop) Orientation Orientation/Cognition Level of Alertness Alert Orientation Name,Age,Birthday,Month,Date,Year,Day of Week,Place, Situation Language Function No Deficits Noted Ability Safety Awareness Understands Safety Issues Memory Description No Deficits Noted Gross Range of Motion Upper Extremity ROM Assessment Within Functional Limits Lower Extremity ROM Assessment Within Functional Limits Strength Upper Extremity Strength Assessment Within Functional Limits Lower Extremity Strength Assessment Within Functional Limits Coordination Assessment Gross Coordination Gross Coordination WNL Sensation Assessment Sensation Gross Sensation Left LE Impaired Sensation Numbness Description Comments Sensation Comments numbness in left foot/ankle area since her trimalleolar fx and ORIF. She reports it feels like leather on the bottom of her foot and that she has bands around her ankle. Muscle Tone Muscle Tone WNL Yes M6 PT-IP Treatment Start: 08/06/25 14:40 Freq: NEEDED Status: Active Protocol: Document 08/06/25 14:41 DLM (Rec: 08/06/25 15:10 DLM Desktop) Physical Therapy Treatment Education Education Provided Safety Other Treatments Other Treatment educated pt in management of her abdominal pain s/p Performed surgery. Spoke to her friend by phone by pt request, discussed getting bed rail, shower seat and toilet seat riser to help manage pain at home. They are aware they can borrow equipment from [facility] but it is not available until Sunday. Educated pt in car transfers to manage abdominal pain by sitting on seat first then getting LE's into the car . M7 PT-IP Assessment and Plan Start: 08/06/25 14:40 Freq: NEEDED Status: Active Protocol: Document 08/06/25 14:41 DLM (Rec: 08/06/25 15:10 DLM Desktop) PT Summary Assessment and Plan Potential Rehabilitation Excellent Potential Status of Condition Evolving at Evaluation Summary Impairments Pain,Activity Tolerance Assessment Summary Mary is alert and resting in bed at this time. She was admitted with abdominal pain. She underwent lap keith and ERCP 08/05/25. She reports abdominal pain that is managed with pain medication today. She demonstrates a safe gait pattern without a device in the harris. She is able to go up/down stairs with use of rail. Her mobility is slower than baseline but is functional and is appropriate for pain management. Discussed home equipment needs based on pt and her Friend's concerns about home. She could benefit from bed rail, shower seat and raised toilet seat to manage her pain at home. No further skilled Physical Therapy needed at this time. Recommend pt discharge home when medically cleared. Frequency of Treatment Frequency Of Discharge Treatment Treatment Plan Other pt is safe for discharge home Recommendations and education completed Next Treatment Focus Precautions Abdominal Surgery Log Roll,Lifting Restrictions,Gait Belt above Precautions Incisional Area Recommendations To Nursing Amount of Assist Standby Assistance Needed Discharge Recommendations PT Discharge Home Recommendations Transportation Needs Private Vehicle at Discharge - PT assist 1
[2025-08-06] MEDS: cefTRIAXone 2,000 MG in SODIUM CHLORIDE 0.9% 100 ML 200 MG IV (15:21)
[2025-08-07] MEDS: metroNIDAZOLE 500 MG/100 ML PIGGYBACK 100 MG IV ×2 (01:23→08:02)
[2025-08-07 04:00] VITALS: BP 175/85; PULSE 84; RESP 16; TEMP 37.2; O2SAT 99
[2025-08-07] MEDS: FAMOTIDINE 20 MG TABLET PO (05:33)
[2025-08-07] MEDS: LEVOTHYROXINE 125 MCG TABLET PO (05:33)
[2025-08-07 06:54] VITALS: BP 167/87; PULSE 76
[2025-08-07] MEDS: hydrALAZINE 20 MG/ML VIAL 10 MG IV (06:54)
[2025-08-07 07:55] VITALS: BP 170/95; PULSE 94
[2025-08-07] MEDS: ACETAMINOPHEN 325 MG TABLET 650 MG PO ×2 (08:00→16:03)
[2025-08-07 12:12] VITALS: BP 170/86; PULSE 84; RESP 16; TEMP 36.7; O2SAT 95
--- NOTE | 2025-08-07 12:25 | P.PN_ITS ---
Subjective Subjective Date Patient Seen: 08/07/25 Time Patient Seen: 12:26 Interval history: Notified by RN that the patient was complaining of a rash after having received hydralazine. She is also taking Rocephin and Flagyl IV. She notes she has taken cephalosporins and Flagyl in the past without incident. She has also had several doses since hospitalization. She received 1 dose of hydralazine and noted a rash on her back. She also reported that she was ?hot and sweaty last night. The rash seems to be limited to her back. She is also noted to have hypotension this a.m.. Her systolic was slightly over 200 prior to having been given the hydralazine. It is now 170. She reports she has been under significant stress at home prior to admission to the hospital and this admission seems to have exacerbated that. Her heart rate remained stable. She is not short of breath nor does she complain of chest pain. She was able to have a bowel movement this morning. She is remained afebrile throughout. Currently her level of pain is 2/10. She did receive oxycodone earlier this morning. Exam Vital Signs (past 8 hours): - 08/07/25 06:54 08/07/25 07:55 08/07/25 12:12 Temperature 98.1 F Pulse Rate 76 94 H 84 Respiratory Rate 16 Blood Pressure 167/87 H 170/95 H 170/86 H Pulse Oximetry 95 Oxygen Flow Rate 0 Oxygen Delivery Method Room Air Oxygen Flow Rate 0 Narrative Exam Narrative: Afebrile; vitals stable with exception of elevation in systolic blood pressure RRR without murmur RCTA; no w/r/r Abdomen ND, with minimal incisional tenderness; good BS Wounds c/d/i without erythema BLACK x 4 Raised rash on back without hives or wheals; appears more like a heat rash than allergic reaction Objective Labs 08/03/25 11:00 08/03/25 11:00 Labs: Laboratory Results - last 24 hr 08/07/25 01:28 POC Whole Bld Glucose 141 H [facility] Medical History (Updated 08/05/25 @ 08:26 by Jens Roberson MD) Hypertension Social History household members: spouse Smoking Status: Never smoker alcohol intake: current Assessment & Plan Assessment & Plan narrative: 74-year-old female with choledocholithiasis status post ERCP and subsequent laparoscopic cholecystectomy -we will discontinue hydralazine, Rocephin, and Flagyl. Initiate Augmentin 875 p.o. b.i.d.. Patient notes that she has taken penicillins in the past without difficulty. We will provide Vistaril for itching and steroid cream to apply directly to the rash on her back. -patient notes that she would prefer to slightly increase the dose of her current antihypertensive, lisinopril, in lieu of the addition of another antihypertensive. We will provide an additional 5 mg of lisinopril, for a total daily dose of 15. -we will revisit this afternoon and if the blood pressure has stabilized, we will consider discharge. Time-Based Coding :: [TOTAL MINUTES] spent with patient and on the chart (including review of chart, obtaining history, exam, reviewing outside data, placing orders, documenting exam and treatment plan, and counseling patient) on [DATE]. Quality VTE Deep Vein Thrombosis/Pulmonary Embolism Present on Admission: No PROFEE Public Information Coordinator Document charge(s): No Charge Codes Subsequent inpatient/observation care: [id number]
[2025-08-07] MEDS: HYDROCORTISONE 2.5% CREAM 30 GM 1 APPLIC TOP (12:38)
[2025-08-07 13:45] VITALS: BP 170/86; PULSE 85
--- NOTE | 2025-08-07 14:19 | CM.DPC ---
DCP Cont. Reviewed EMR and team rounds for pt's medical status and updates. Pt has been medically cleared for home d/c. No further d/c needs are indicated at this time.
[2025-08-07] MEDS: AMOXICILLIN/CLAV 875/125 MG 1 TAB PO (16:02)
--- NOTE | 2025-08-07 20:05 | PC.NURSE ---
Discharge: Pt feels ready to d/c to home. Lisinopril has been increased and she understands how to take her bp and has a cuff at home. Pain is in control and d/c instructions were given by Packet give,. MD alcala rash on back. Does not think a drug reaction, she thinks it is from the sheets. Spouse here at time of d/c to home. He has already picked up her medication Pt accident left her own meds her and she will be coming back to retrieve them.Pt d/c to home via auto with spouse.
== END 2025-08-07 18:30 | disposition home or self-care (01) | DRG 419 ==
LOC: ED 10:58 → AC 13:54
PROVIDERS: Admitting Provider Surgery; Emergency Provider Emergency Medicine; PCP Family Medicine; Referring Provider Emergency Medicine; Visit Provider Surgery
PROC: 0FT44ZZ Resection of Gallbladder, Percutaneous Endoscopic Approach (ICD-10-PCS; CPT 47563; principal; 2025-08-04 14:15)
DX: K80.01 Calculus of gallbladder with acute cholecystitis with obstruction (principal); K82.8 Other specified diseases of gallbladder; I10 Essential (primary) hypertension; R21 Rash and other nonspecific skin eruption; I95.9 Hypotension, unspecified
CPT/HCPCS: 36415; 47563; 71045; 71275; 74174; 74300; 76705; 80053; 80076; 82550; 82962; 83605; 83690; 83735; 83880; 84484; 85025; 85610; 85730; 93005; 96374; 96375; 97162; 99222; 99284; G0378; A9270; J0330; J0360; J0696; J1100; J1171; J2270; J2272; J2405; J2470; J2704; J3410; J3490; J7030; J7050; J7120; Q9967